=== PATIENT | female | born 1935 | race Asian ===

== ENCOUNTER 2018-03-31 18:56 | Inpatient (IN) | payer OTHER ==
[~2018-03-31] VITALS: Ht 144.8 cm; Wt 68.0 kg
[2018-03-31 19:31] VITALS: Ht 144.8 cm; Wt 68.0 kg
[2018-03-31 20:53] LABS: BASOPHIL % 0.7 % (0-2)
[2018-03-31 20:55] LABS: PLATELET COUNT 95 x10^3mcL (130-400); RED CELL DISTRIBUTION WIDTH 19.5 % (11.5-14.5)
[2018-03-31 21:13] LABS: CALCIUM 8.1 mg/dL (8.5-10.1); CARBON DIOXIDE 22.6 mmol/L (21-32); CHLORIDE SERUM 106 mmol/L (98-107); CREATININE SERUM 2.3 mg/dL (0.6-1.0); GLUCOSE SERUM 119 mg/dL (74-106); POTASSIUM SERUM 4.8 mmol/L (3.5-5.1); SODIUM SERUM 144 mmol/L (136-145)
[2018-03-31 21:18] LABS: ALKALINE PHOSPHATASE 143 U/L (46-116); ALT/SGPT 12 U/L (14-59); AST/SGOT 15 U/L (15-37); TOTAL PROTEIN, SERUM 6.6 g/dL (6.4-8.2)
[2018-03-31 21:19] LABS: ALBUMIN 3.2 g/dL (3.4-5.0)
[2018-03-31] MEDS ORDERED: METFORMIN HYD1000 M2 PO (22:37)
[2018-03-31] MEDS ORDERED: LASIX40 MG PO (22:38)
[2018-03-31] MEDS ORDERED: ELIQUIS5 MG PO (22:38)
[2018-03-31] MEDS ORDERED: CRESTOR20 M1 PO (22:39)
[2018-03-31] MEDS ORDERED: PEPCID20 MG PO (22:39)
[2018-03-31] MEDS ORDERED: LABETALOL HYDR300 MG PO (22:39)
[2018-03-31] MEDS ORDERED: DIGOXIN0.125 M1 PO (22:39)
[2018-03-31] MEDS ORDERED: FOSAMAX70 M1 PO (22:40)
[2018-03-31] MEDS ORDERED: VIT D (22:41)
[2018-03-31 22:57] LABS: T3 TOTAL 0.87 ng/mL
[2018-03-31 23:07] LABS: MAGNESIUM 1.4 mg/dL (1.8-2.4); PHOSPHOROUS 4.4 mg/dL (2.5-4.9)
[2018-03-31 23:22] LABS: CHOLESTEROL/HDL RATIO 1.3
[2018-03-31 23:42] LABS: FREE T4 1.58 ng/dL (0.76-1.46); FREE THYROXINE INDEX 3.8 ug/dL (1.4-4.5); T4(THYROXINE) 10.1 ug/dL (4.7-13.3)
[2018-03-31 23:56] VITALS: BP 95/64
[2018-04-01 05:35] VITALS: BP 96/72
[2018-04-01 06:29] LABS: BASOPHIL % 0.4 % (0-2)
[2018-04-01 06:42] LABS: CHLORIDE SERUM 106 mmol/L (98-107); CREATININE SERUM 2.3 mg/dL (0.6-1.0); GLUCOSE SERUM 145 mg/dL (74-106); MAGNESIUM 1.5 mg/dL (1.8-2.4); PHOSPHOROUS 4.2 mg/dL (2.5-4.9); POTASSIUM SERUM 4.6 mmol/L (3.5-5.1); SODIUM SERUM 142 mmol/L (136-145)
[2018-04-01 06:43] LABS: PLATELET COUNT 94 x10^3mcL (130-400); RED CELL DISTRIBUTION WIDTH 19.4 % (11.5-14.5)
[2018-04-01 08:18] LABS: microscopic required? YES; urine erythrocyte NEGATIVE (NEGATIVE)
[2018-04-01 10:29] VITALS: BP 125/82
[2018-04-01 14:54] VITALS: BP 111/53
[2018-04-01 18:12] VITALS: BP 127/74
[2018-04-01 20:47] VITALS: BP 125/83
[2018-04-02 05:31] VITALS: BP 121/78
[2018-04-02 06:37] LABS: BASOPHIL % 0.4 % (0-2)
[2018-04-02 06:39] LABS: PLATELET COUNT 94 x10^3mcL (130-400)
[2018-04-02 06:53] LABS: CALCIUM 8.5 mg/dL (8.5-10.1); CARBON DIOXIDE 26.9 mmol/L (21-32); CHLORIDE SERUM 106 mmol/L (98-107); CREATININE SERUM 1.8 mg/dL (0.6-1.0); GLUCOSE SERUM 108 mg/dL (74-106); MAGNESIUM 1.6 mg/dL (1.8-2.4); POTASSIUM SERUM 4.1 mmol/L (3.5-5.1); SODIUM SERUM 143 mmol/L (136-145)
[2018-04-02 10:22] VITALS: BP 126/74
[2018-04-02 14:28] VITALS: BP 125/74
[2018-04-02 17:30] VITALS: BP 142/76
[2018-04-02 20:41] VITALS: BP 126/90
[2018-04-03 05:45] VITALS: BP 132/78
[2018-04-03 06:41] LABS: BASOPHIL % 0.4 % (0-2)
[2018-04-03 06:59] LABS: CARBON DIOXIDE 29.8 mmol/L (21-32); CHLORIDE SERUM 107 mmol/L (98-107); CREATININE SERUM 1.3 mg/dL (0.6-1.0); GLUCOSE SERUM 109 mg/dL (74-106); POTASSIUM SERUM 3.4 mmol/L (3.5-5.1); SODIUM SERUM 147 mmol/L (136-145)
[2018-04-03 07:02] LABS: PLATELET COUNT 107 x10^3mcL (130-400); RED CELL DISTRIBUTION WIDTH 18.8 % (11.5-14.5)
[2018-04-03 07:41] VITALS: BP 150/94
[2018-04-03] MEDS ORDERED: LAC PO (11:57)
[2018-04-03 12:33] VITALS: BP 95/63
[2018-04-03] MEDS ORDERED: DOXYCYCLINE HY100 MG PO (15:31)
[2018-04-03 18:54] VITALS: BP 95/63
== END 2018-04-03 19:50 | disposition home or self-care (01) | DRG 606 ==
LOC: ED 18:56 → DU 22:24
PROVIDERS: Emergency Medicine; ADMIT Family Medicine
PROC: 0H9KXZZ Drainage of Right Lower Leg Skin, External Approach (ICD-10-PCS; principal; 2018-04-01)
DX: S80.821A Blister (nonthermal), right lower leg, initial encounter (principal); N17.0 Acute kidney failure with tubular necrosis; I50.33 Acute on chronic diastolic (congestive) heart failure; E44.1 Mild protein-calorie malnutrition; D68.69 Other thrombophilia; I11.0 Hypertensive heart disease with heart failure; E11.65 Type 2 diabetes mellitus with hyperglycemia; E02 Subclinical iodine-deficiency hypothyroidism; I48.2 Chronic atrial fibrillation; Z91.81 History of falling; Y93.89 Activity, other specified; W17.89XA Other fall from one level to another, initial encounter; Y92.018 Other place in single-family (private) house as the place of occurrence of the external cause; Z68.25 Body mass index [BMI] 25.0-25.9, adult
CPT/HCPCS: 82962; 83880; 84439; 97116-GP; J1940; J3475; J7050; Q0092

== ENCOUNTER 2018-09-27 05:34 | Inpatient (IN) | payer OTHER ==
[2018-09-27] VITALS (18 sets, daily range): BP systolic 68–110; BP diastolic 44–77
[~2018-09-27] VITALS: Ht 157.5 cm; Wt 74.0 kg
[~2018-09-27 05:34] MED LIST: CRESTOR20 M1 PO; DIGOXIN0.125 M1 PO; DOXYCYCLINE HY100 MG PO; ELIQUIS5 MG PO; FOSAMAX70 M1 PO; LABETALOL HYDR300 MG PO; LAC PO; LASIX40 MG PO; METFORMIN HYD1000 M2 PO; PEPCID20 MG PO; VIT D
--- NOTE | 2018-09-27 05:47 | NUR ---
PT BIBA PER PRINTED CIRCUIT BOARD LAYOUT DESIGNER PT WAS LAST SEEN IN NORMAL LOC AT 0400. PER PRINTED CIRCUIT BOARD LAYOUT DESIGNER NURSE STS THAT PT WOULD COMMUNICATE BY NODDING. PT BECAME MORE UNRESPONSIVE. PT WAS BAGGED IN THE FEILD AND UPON ARRIVAL. DR. VELASCO AT BEDSIDE FOR INTUBATION AND CENTRAL LINE PLACEMENT. PT ARRIVED W/ URINARY CATH, PER PRINTED CIRCUIT BOARD LAYOUT DESIGNER PT WAS ADMITTED TO FACILITY FOR UTI. DR. VELASCO, RESPIRATORY, EMT, NURSE SIMONE RUIZ AND VANDANA AT BEDSIDE.
--- NOTE | 2018-09-27 06:25 | NUR ---
BL SOFT WRIST RESTRAINTS APPLIED DUE TO INTUBATION.
[2018-09-27 06:49] LABS: BASOPHIL % 0.1 % (0-2); PLATELET COUNT 177 x10^3mcL (130-400)
[2018-09-27] MEDS ORDERED: ACETAZOLAMIDE250 MG PO (06:52)
[2018-09-27] MEDS ORDERED: APAP500 MG GT (06:52)
[2018-09-27] MEDS ORDERED: CARVEDILOL6.25 M1 PO (06:53)
[2018-09-27] MEDS ORDERED: BUDESONIDE0.25 MG/2 IH (06:53)
[2018-09-27] MEDS ORDERED: EFFER-K20 MEQ GT (06:54)
[2018-09-27] MEDS ORDERED: DILTIAZEM HCL120 M2 PO (06:54)
[2018-09-27] MEDS ORDERED: [UNRECOGNIZED DRUG - OTHER] IV (06:55)
[2018-09-27] MEDS ORDERED: HEPARIN NS IV (06:55)
--- NOTE | 2018-09-27 06:55 | NUR ---
LAB AT BEDSIDE FOR DRAW
--- NOTE | 2018-09-27 06:55 | NUR ---
RT AT BEDSIDE FOR ABG
[2018-09-27] MEDS ORDERED: HEPARIN SO5000 UNIT/ IJ (06:56)
--- NOTE | 2018-09-27 06:56 | NUR ---
PER DR. ATWOOD REQUESTED RESP TO PULL BACK 2 CM
[2018-09-27] MEDS ORDERED: ACULAR LS5 ML (06:57)
--- NOTE | 2018-09-27 07:00 | NUR ---
DR. VELASCO CONFIRMED PLACEMENT OF CENTRAL LINE
[2018-09-27] MEDS ORDERED: LACTULOSE10 GM/152 PO (07:05)
--- NOTE | 2018-09-27 07:08 | NUR ---
REPOSITIONED OG TUBE.
[2018-09-27 07:20] LABS: ALKALINE PHOSPHATASE 118 U/L (46-116); ALT/SGPT 15 U/L (14-59); AST/SGOT 19 U/L (15-37); BILIRUBIN TOTAL 0.5 mg/dL (0.20-1.00); CALCIUM 7.5 mg/dL (8.5-10.1); CARBON DIOXIDE 23.7 mmol/L (21-32); CHLORIDE SERUM 105 mmol/L (98-107); CREATININE SERUM 1.2 mg/dL (0.6-1.0); GLUCOSE SERUM 160 mg/dL (74-106); SODIUM SERUM 138 mmol/L (136-145)
[2018-09-27 07:21] LABS: ALBUMIN 1.7 g/dL (3.4-5.0); TOTAL PROTEIN, SERUM 4.9 g/dL (6.4-8.2)
[2018-09-27 07:23] LABS: POTASSIUM SERUM 6.8 mmol/L (3.5-5.1)
[2018-09-27 07:28] LABS: UA SPECIFIC GRAVITY >=1.030 (1.005-1.035); microscopic required? YES; urine erythrocyte 3+ (NEGATIVE)
--- NOTE | 2018-09-27 07:49 | NUR ---
FENTANYL 100MCG/HR PER DR. ATWOOD.
--- NOTE | 2018-09-27 07:53 | NUR ---
PT TAKEN TO CT. REPORT RECEIVED FROM SHEMAR BOWSER TO ASSUME CARE OF PT. OGNEEDS TO BE PULLED BACK AND XRAY NEED TO BE TAKEN. PER DR. ATWOOD DO NOT USE OG NEEDS XRAY FOR PLACEMENT.
--- NOTE | 2018-09-27 07:55 | NUR ---
REPORT TO NIELS REVELES TO ASSUME CARE
[2018-09-27 08:00] LABS: CALCIUM 8.1 mg/dL (8.5-10.1); CARBON DIOXIDE 29.2 mmol/L (21-32); CHLORIDE SERUM 103 mmol/L (98-107); CREATININE SERUM 1.4 mg/dL (0.6-1.0); GLUCOSE SERUM 147 mg/dL (74-106); SODIUM SERUM 137 mmol/L (136-145)
--- NOTE | 2018-09-27 08:05 | NUR ---
RETURNED FROM CT.
--- NOTE | 2018-09-27 08:08 | NUR ---
FENTANYL INCREASED 1.3MCG/KG/HR. PT WAS OPENING EYES AND AGGITATEDTRYING TO GRAB TUBE. DR. ATWOOD MADE AWARE.
[2018-09-27 08:17] LABS: POTASSIUM SERUM 6.4 mmol/L (3.5-5.1)
--- NOTE | 2018-09-27 08:20 | NUR ---
CALCIUM GIVEN THROUGH CENTRASL LINE. VSS. RESP E/U. FAMILY AT BEDSIDE. RESP CALLED FOR TREATMENT.
--- NOTE | 2018-09-27 08:39 | NUR ---
PT MEDICATED PER EMAR WITH VELTASSA VIA GTUBE, +BOWEL SOUNDS UPON AUSCULTATION, FOLLOWED PATIENT CARE ASSOCIATE WITH 20CC OF STERILE WATER, PT TOLERATED WELL.
--- NOTE | 2018-09-27 08:57 | NUR ---
URINE OUTPUT @700 CLEAR AND YELLOW. FAMILY AT BEDSIDE. VSS. RESP E/U. PT TOLERATING WELL. DR. ATWOOD AT BEDSIDE WITH FAMILY.
--- NOTE | 2018-09-27 09:21 | NUR ---
ADJUSTED FENTANYL TO 2.7MCG/KG/H PER DR. HENSON WANTS 200MCG PER HOUR. PT WAS OPENING EYES AND TRYING TO GRAB TUBES. VSS. NO DISTRESS NOED. PT EYES CLOSED AND WITH VISUAL CHEST RISE AND FALL.
--- NOTE | 2018-09-27 10:05 | NUR ---
PT ARRIVED FROM ED ON GURNEY ACCOMPANIED BY RNS, RTS, ACROBATIC RIGGER. PT IS INTUBATED AND SEDATED ON FENTANYL @ 2.5 MCG/KG/HR TO RSS = 5. SLUGGISH RESPONSE TO PAINFUL STIMULI. DOES NOT FOLLOW COMMANDS. PUPILS SLUGGISH BILATERALLY. SIZE 7.5 ETT INTACT AND SECURED, 20 @ LL. OGT INTACT AND SECURED, CLAMPED. R IJ CVC PATENT/CDI. A FIB. S1 S2. ABD IS SOFT AND FLAT. G TUBE INTACT AND CDI. R HAND, L HAND IVS PATENT/CDI. RLE IO INTACT. F/C TO GRAVITY, URINE IS YELLOW, FAIR OUTPUT. GENERALIZED WEAKNESS. ON SOFT B/L WRIST RESTRAINTS. NAD. HOB ELEVATED, BED LOW, SIDE RAILS UP X2, CALL LIGHT IN REACH.
--- NOTE | 2018-09-27 10:15 | NUR ---
REPORT GIVEN TO INOCENTE BOWSER, TO ASSUME CARE OF PT. INFORMED TO NOT USE OG BECAUSE OF WROGE PLACEMENT. RN INFOMRED THAT PT STILL HAS I&O TO RIGHT TIB. VSS UPON TRANSPORTATION.
--- NOTE | 2018-09-27 10:30 | NUR ---
PRESSURE ULCER NOTED TO SACRUM. PHOTOGRAPHIC DOCUMENTATION TAKEN. 1.5CM X 1CM ULCER W/ PINK WOUND BED. NO D/C NOTED. OPTIFOAM APPLIED. FLOATED.
[2018-09-27 10:42] LABS: MAGNESIUM 2.3 mg/dL (1.8-2.4); PHOSPHOROUS 6.8 mg/dL (2.5-4.9)
[2018-09-27 10:46] LABS: CHOLESTEROL/HDL RATIO 3.6
[2018-09-27 10:50] LABS: T3 TOTAL 0.32 ng/mL
--- NOTE | 2018-09-27 11:17 | NUR ---
UPDATED MED REC W/ DAUGHTER'S MOST CURRENT MED LIST.
[2018-09-27 11:27] LABS: FREE T4 0.99 ng/dL (0.76-1.46)
[2018-09-27 11:28] LABS: FREE THYROXINE INDEX 1.5 ug/dL (1.4-4.5); T4(THYROXINE) 3.6 ug/dL (4.7-13.3)
--- NOTE | 2018-09-27 12:45 | NUR ---
VERSED INITIATED AT THIS TIME @ 0.5 MG/HR. FENTANYL TITRATED TO 0.5 MG/HR, RSS = 4.
--- NOTE | 2018-09-27 14:46 | NUR ---
PT BECOMING HYPOTENSIVE WITH LOWEST MAP [address] IN PAST [address] STANISLAV RAY, ORDERS RECIEVED TO BOLUS 500 ML NS AND WILL START PRESSOR TX.
[2018-09-27 16:26] LABS: RED BLOOD CELLS 2.84 M/mm3 (4.10-5.10)
[2018-09-27 16:34] LABS: IRON 47 ug/dL (50-170); TOTAL IRON BINDING CAPACITY 174 ug/dL (250-450)
--- NOTE | 2018-09-27 17:00 | NUR ---
VERSED AND FENTANYL TITRATED OFF AT THIS TIME D/T HYPOTENSION.
[2018-09-27 17:25] LABS: BASOPHIL % 0.3 % (0-2); PLATELET COUNT 150 x10^3mcL (130-400)
[2018-09-27 17:49] LABS: CALCIUM 8.3 mg/dL (8.5-10.1); CARBON DIOXIDE 29.3 mmol/L (21-32); CHLORIDE SERUM 105 mmol/L (98-107); CREATININE SERUM 1.1 mg/dL (0.6-1.0); GLUCOSE SERUM 92 mg/dL (74-106); POTASSIUM SERUM 4.6 mmol/L (3.5-5.1); SODIUM SERUM 141 mmol/L (136-145)
[2018-09-27 17:54] LABS: ALKALINE PHOSPHATASE 113 U/L (46-116); ALT/SGPT 12 U/L (14-59); AST/SGOT 13 U/L (15-37); BILIRUBIN TOTAL 0.6 mg/dL (0.20-1.00)
[2018-09-27 17:57] LABS: ALBUMIN 1.9 g/dL (3.4-5.0); TOTAL PROTEIN, SERUM 5.3 g/dL (6.4-8.2)
--- NOTE | 2018-09-27 18:40 | NUR ---
LEVOPHED INITIATED AT THIS TIME D/T MAP PERSITENTLY UNDER 60 FOR PAST 30 MINS. LEVOPHED INITIATED @ 2MCG/MIN THROUGH R IJ CVC.
--- NOTE | 2018-09-27 19:15 | NUR ---
RECIEVED REPORT FROM NIELS BROWER. POC DISCUSSED. NURSING UPDATES. RESUMED CARE OF PT. SEE SHIFT ASSESSMENT FOR ASSESSMENT.
--- NOTE | 2018-09-27 23:30 | NUR ---
DR CROSS @ BEDSIDE. NURSING UPDATES. POC DISCUSSED. NO NEW ORDERS @ THIS TIME. WILL ENDORSE.
[2018-09-28] VITALS (15 sets, daily range): BP systolic 81–117; BP diastolic 49–85
--- NOTE | 2018-09-28 02:00 | NUR ---
PT W/ BROWN LIQUID UNFORMED BM. CLEANED LINENS AND PT. PT TOLERATED WELL. WILL CONT TO MONITOR.
--- NOTE | 2018-09-28 02:10 | NUR ---
PT W/ AGITATION. TITRATED VERSED FROM OFF TO 1MG PT TOLERATED WELL. NO S/S OF DISTRESS. LINENS AND GOWN CHANGED FOR PT BM BROWN UNFORMED LIQUID. PT TOLERATED WELL. WILL CONT TO MONITOR.
--- NOTE | 2018-09-28 03:48 | NUR ---
PT W/ EPISODES OF HYPOTENSION. TITRATED VERSED OFF. PT BP WNL MAP > 65. WILL CONT TO MONITOR.
[2018-09-28 05:47] LABS: PLATELET COUNT 163 x10^3mcL (130-400)
[2018-09-28 06:00] LABS: CALCIUM 8.4 mg/dL (8.5-10.1); CARBON DIOXIDE 27.7 mmol/L (21-32); CHLORIDE SERUM 105 mmol/L (98-107); GLUCOSE SERUM 120 mg/dL (74-106); MAGNESIUM 2.1 mg/dL (1.8-2.4); POTASSIUM SERUM 4.2 mmol/L (3.5-5.1); SODIUM SERUM 142 mmol/L (136-145)
[2018-09-28 06:03] LABS: BASOPHIL % 0 % (0-2); RED CELL DISTRIBUTION WIDTH 17.6 % (11.5-14.5)
--- NOTE | 2018-09-28 06:19 | NUR ---
NURSING UPDATES PER MAURO DAUGHTER OF PT. PHONE PROTOCOL FOLLOWED. MAURO STATED SHE WOULD BE BY LATER. WILL ENDORSE.
--- NOTE | 2018-09-28 07:16 | NUR ---
THE BP 100/66 AND MAP 79; VASOPRESSIN WAS HELD.
--- NOTE | 2018-09-28 07:30 | NUR ---
PATIENT REMAINS INTUBATED WITH NO SEDATION AT THIS TIME. PATIENT OPENS HER EYES SPONTANEOUSLY AND FOLLOWS SOME SIMPLE COMMANDS. ETT 7.5 SECURED TO FACE AND AT 20CM AT LIPLINE. ETT TO VENT VIA VCV/AC MODE: FIO2 30%, RATE 14, VT 400 AND PEEP 5. OGT IN PLACE AND SECURED TO ETT. OGT PLACEMENT VERIFIED WITH SOME AIR BOLUS. OGT CLAMPED. CVC TO RIJ WITH DRESSING IN PLACE. OTHER IV SITES TO LEFT HAND AND RIGHT HAND. PEG TUBE IN PLACE AND CONNECTED TO TUBE FEEDING WITH VITAL AF AT 10ML/HR. NO RESIDUAL AT THIS TIME. TF INCREASED TO 20ML/HR. AND FREE WATER FLUSH AT 50ML/Q4HR. FLORENTINO CATH TO GRAVITY DRAINING YELLOW URINE. CALL LIGHT WITHIN REACH. SIDE RAILS UP X3. BED IS AT LOWEST POSITION. ALARM IS ON. HEAD OF BED ELEVATED. BLE ELEVATED ON PILLOWS.
--- NOTE | 2018-09-28 08:30 | NUR ---
DR. VALDIVIA IS AT BEDSIDE ASSESSING THE PATIENT. UPDATE PROVIDED TO THE DOCTOR.
--- NOTE | 2018-09-28 08:45 | NUR ---
DR VALDIVIA AT BEDSIDE TO ASSESS PATIENT. NO FAMILY BEDSIDE. POC DISCUSSED WITH NURSING AND RT VALERIO.
--- NOTE | 2018-09-28 10:13 | NUR ---
PLACED PT ON CPAP 5 WITH PSV 12 AND FIO2 30% PER DR. VALDIVIA WRITTEN ORDER.
--- NOTE | 2018-09-28 11:25 | NUR ---
RT IMAN IS AT BEDSIDE AND SWITCHES THE VENT SETTING TO VCV/AC MODE: FIO2 30%, RATE 14, VT 400, PEEP 5. RESIDUAL 0 AT THIS TIME. TUBE FEEDING RATE INCREASED FROM 20ML/HR TO 30ML/HR ORDERED.
--- NOTE | 2018-09-28 12:29 | NUR ---
WOUND CARE EVALUATION NOTE: REASON FOR EVALUATION: LOW MARISSA SCALE AND SACRALCOCCYX WOUND SKIN ASSESSMENT DONE WITH THIS 83 Y/O FEMALE PT ADMITTED [facility] [place] [facility] [place] PAST MEDICAL HX INCLUDES HTN, DM, H/O GI BLEED, A-FIB AND PT. ADMITTED WITH PRESSURE ULCER STAGE 2 TO SACRALCOYX. PT IS AWAKE AND INTUBATED. SKIN IS WARM AND MOIST, BUE MULTIPLE ECCHYMOSIS FROM BLOOD DRAW. BLE WITH DRY FLAKY SKIN, NO HAIR GROWTH, NO EDEMA. DORSAL PEDAL PULSES PRESENT AND NORMAL. PLAN OF CARE DISCUSSE WITH PRIMARY RN AND PT. PT. BLINK HER EYES. INTEGUMENTARY: -MOIST ASSOCIATED DERMATITIS TO BUTTOCKS, PERINEUM, GROINS AREA, SKIN REDNESS INTACT. -SACRALCOCCYX PRESSURE ULCER STAGE 2, WITH 1.5X1X0.1 CM WOUND BED IS 100 % GRANULATING AND FRANTZ-WOUND SKIN INTACT, OPTIFOAM IN PLACE -BLE DRYNESS WITH SKIN INTACT -BILATERAL HEELS BLANCHABLE REDNESS, SKIN INTACT RECOMMENDATIONS: -CLEANSE WITH SOAP AND WATER, PAT DRY, APPLY HYDRAGUARD TO BUTTOCKS, PERINEUM, GROINS AREAS BID AND OPEN TO AIR -CLEANSE SACRALCOCCYX PRESSURE INJURY WITH NS, PAT DRY, APPLY Z GUARD AND COVER WITH OPTIFOAM QD AND PRN IF SOILING. -OFFLOAD BILATERAL HEELS BY PLACING PILLOWS UNDER CALVES UNLESS OTHERWISE CONTRAINDICATED -PRESSURE REDISTRIBUTION SURFACE THERAPY -TURN AND REPOSITION Q2H, OFFLOAD RIGHT, LEFT EARS AND SACRALCOCCYX -KEEP SKIN DRY AND CLEAN AT ALL TIMES -CONTINUE TO FOLLOW RD RECOMMENDATIONS PLEASE CONTACT WOUND CARE NURSE FOR ANY QUESTION AND CHANGE OF WOUND CONDITION.
--- NOTE | 2018-09-28 12:44 | NUR ---
IO AT RIGHT LEG REMOVED WITH THE TIP INTACT. NO BLEEDING NOTED AT THIS TIME. PRESSURE DRESSING APPLIED. OGT REMOVED WITH ASSISTANCE OF RT VALERIO. THE OGT TIP INTACT.
--- NOTE | 2018-09-28 15:16 | NUR ---
DR. MAYORGA IS AT BEDSIDE ASSESSING THE PATIENT. UPDATE PROVIDED TO THE DOCTOR.
--- NOTE | 2018-09-28 15:17 | NUR ---
RESIDUAL CHECKED 0. TUBE FEEDING RATE INCREASED FROM 30ML/HR TO 35ML/HR TO REACH THE GOAL ORDERED.
--- NOTE | 2018-09-28 15:57 | NUR ---
DR. STOCKTON IS AT BEDSIDE ASSESSING THE PATIENT.
--- NOTE | 2018-09-28 17:32 | NUR ---
PATIENT HAD BM WITH MODERATE AMOUNT OF YELLOW LIQUID STOOL. STOOL SAMPLE WAS COLLECTED AND SENT TO THE LAB FOR OB.
--- NOTE | 2018-09-28 18:17 | NUR ---
PATIENT WAS GIVEN A BED BATH; LINEN AND GOWN CHANGED.
--- NOTE | 2018-09-28 19:39 | NUR ---
RECEIVED REPORT FROM NIELS GONGORA. PT IS ALERT AND ABLE TO FOLLOW SIMPLE COMMANDS. PT IS INTUBATED ON NO SEDATION. 7.5 ETT AT 20 CM LL. LUNG SOUNDS COURSE CRACKLES TO BILATERAL UPPER LOBES, DIMINISHED TO BILATERAL LOWER LOBES. S1 S2 HEART SOUNDS AUSCULTATED IN A FIB. PERIPHERAL IV TO RIJ AND LEFT HAND PATENT AND DRESSING CDI. PT HAS MODERATE PULSES TO BUE/BLE. SKIN IS WARM AND CONSISTENT WITH ETHNICITY. PT HAS SCATTERED ECCHYMOSIS TO BUE/BLE. AND WOUND TO SACRUM WITH OPTIFOAM IN PLACE. ABD IS SOFT AND FLAT WITH ACTIVE BOWEL SOUNDS X4Q. PEG TUBE TO UPPER QUADRANTS. VITAL AF INFUSING AT 35 ML/HR. FLORENTINO DRAINING VIA GRAVITY. URINE IS YELLOW WITH FAIR OUTPUT. ALL QUESTIONS AND CONCERNS ANSWERED.
[2018-09-29] VITALS (16 sets, daily range): BP systolic 106–145; BP diastolic 47–87
--- NOTE | 2018-09-29 04:19 | NUR ---
PROVIDED PT WITH NORCO VIA PEG TUBE. PT APPEARED TO BE EXPERIENCING DISCOMFORT. PT NODDED YES WHEN ASKED IF SHE WOULD LIKE PAIN MEDICATION. WEENING MEASURES WILL BE STARTED THIS MORNING, THEREFORE SEDATION COULD NOT BE TURNED BACK ON. WILL CONTINUE TO MONITOR.
--- NOTE | 2018-09-29 05:07 | NUR ---
PT PROVIDED WITH FULL BED BATH, FLORENTINO CARE, AND CVC CARE. ALL SUCTION EQUIPMENT CHANGED FOR NEW ONES. PT TOLERATED WELL.
[2018-09-29 05:26] LABS: PLATELET COUNT 152 x10^3mcL (130-400)
[2018-09-29 05:29] LABS: CALCIUM 7.9 mg/dL (8.5-10.1); CARBON DIOXIDE 27.5 mmol/L (21-32); CHLORIDE SERUM 110 mmol/L (98-107); CREATININE SERUM 0.8 mg/dL (0.6-1.0); GLUCOSE SERUM 175 mg/dL (74-106); PHOSPHOROUS 2.7 mg/dL (2.5-4.9); POTASSIUM SERUM 3.4 mmol/L (3.5-5.1); SODIUM SERUM 143 mmol/L (136-145)
[2018-09-29 05:31] LABS: BASOPHIL % 0 % (0-2); RED CELL DISTRIBUTION WIDTH 18.4 % (11.5-14.5)
[2018-09-29 05:32] LABS: ALBUMIN 1.8 g/dL (3.4-5.0)
--- NOTE | 2018-09-29 07:35 | NUR ---
PLACED PT ON CPAP AT THIS TIME. PT TOLERATING CPAP WELL. WILL CONTINUE TO MONITOR.
--- NOTE | 2018-09-29 08:13 | NUR ---
DARLENE REEVES PLACED PT ON CPAP TO SEE IF PT CAN TOLERATE EXTUBATION. WILL CONTINUE TO MONITOR.
--- NOTE | 2018-09-29 09:39 | NUR ---
DR. NASH, RESIDENTS, SLURRY TANK OPERATOR AND PRIMARY RN AT BEDSIDE FOR MORNING ROUNDS. PLAN OF CARE DISCUSED. WILL CONT TO MONITOR.
--- NOTE | 2018-09-29 09:43 | NUR ---
TF HELD AT THIS TIME FOR POSSIBLE EXTUBATION TODAY. RT CURRENTLY AT BEDSIDE FOR WEANING TRIALS.
--- NOTE | 2018-09-29 10:18 | NUR ---
PT STILL ON CPAP. RESPIRATORY RATE 33, SPO2 94%. DARLENE RT CALLED WITH UPDATE, WILL CONTINUE TO MONITOR.
--- NOTE | 2018-09-29 10:38 | NUR ---
PLACED PT BACK ON FULL SUPPORT AT THIS TIME. WILL CONTINUE TO MONITOR.
--- NOTE | 2018-09-29 11:02 | NUR ---
DR. VALDIVIA AT BEDSIDE TO SEE AND ASSESS PT, PLAN TO ATTEMPT WEANING AGAIN LATER. WILL CONT TO MONITOR.
--- NOTE | 2018-09-29 13:00 | NUR ---
PT PLACED BACK ON CPAP BY DARLENE REEVES. WILL CONTINUE TO MONITOR PT
--- NOTE | 2018-09-29 13:31 | NUR ---
DR. MAYORGA AT BEDSIDE. UPDATED ON PERCEIVED LOW URINE OUTPUT, AND DR. MAYORGA WOULD LIKE TO INCREASE FWF TO 100 ML Q4HR. WILL CARRY OUT ORDER AND MONITOR URINE OUTPUT.
--- NOTE | 2018-09-29 13:44 | NUR ---
IVF REDUCED TO TKO. PRIMARY RN MADE AWARE.
--- NOTE | 2018-09-29 16:00 | NUR ---
PT PLACED BACK ON FULL VENT SUPPORT DUE TO TACHYPNEA, CPAP TO BE TRIED AGAIN TOMORROW.
--- NOTE | 2018-09-29 19:30 | NUR ---
REC'D REPORT FROM MINI BOWSER TO ASSUME CARE. PT INTUBATED WITH NO SEDATION WITH RSS 2. ABLE TO FOLLOW COMMANDS. PERRLA NOTED. 7.5 ETT SECURED @ 20 CM [address]. TRACHEA MIDLINE. NO JVD NOTED. RIJ CVC INTACT, PORTS PATENT, DSG CDI. ETT TO VENT: AC MODE RATE 14, TV 400, PEEP 5, FIO2 30%. CHEST RISE EQUAL AND SYMMETRICAL. LUNG SOUNDS COARSE CRACKLES BUL, DIM BASES. AUTOMATIC LATHE SETTER IN PLACE SHOWING NSR. BP 108/75 MAP 86, HR 90. CHEST WALL STABLE. DENIES ANY CP, SYNCOPE, OR DIZZINESS. PULSES PALPABLE X4. CAP REFILL < 3 SECS. BUE/BLE 1+ PITTING EDEMA. PT ON ELIQUIS. IVF NS @ 10ML/HR. VITAL AF INFUSING VIA PEG TUBE @ 35ML/HR FWF 100ML Q2H. GRV=5ML REPLACED. PT TOLERATING WELL. ABD ROUND, SOFT, NONTENDER TO TOUCH. BOWEL SOUNDS ACTIVE. F/C INTACT AND DRAINING VIA GRAVITY YELLOW URINE. NO VAGINAL BLEEDING. NO LABIAL EDEMA NOTED. ULCER TO SACRUM WITH OPTIFOAM IN PLACE. ECCHYMOSIS TO BUE. DARK SKIN DISCOLORATION TO BLE. PT BEDBOUND. TURNED AND REPOSITIONED Q2H FOR PRESSURE RELIEF. BUE SOFT WRIST RESTRAINTS IN PLACE FOR PT SAFETY. CALM AND COOPERATIIVE. POSITIVE FAMILY SUPPORT AT BEDSIDE. ALL NEEDS MET AT THIS TIME. WILL CONTINUE TO MONITOR.
--- NOTE | 2018-09-29 21:11 | NUR ---
DR YUNG AT BEDSIDE TO ASSESS PT. MADE AWARE PT HAS INCREASED BUE PITTING EDEMA. RECOMMMENDED LASIX PER DR STOCKTON TO START NEEDED. AWAITING FOR FURTHER ORDERS.
[2018-09-30] VITALS (19 sets, daily range): BP systolic 91–124; BP diastolic 39–78
--- NOTE | 2018-09-30 03:30 | NUR ---
TOTAL BED BATH PROVIDED WITH CHG WIPES, F/C CARE PROVIDED, LINENS CHANGED. REPOSITIONED AT THIS TIME.
[2018-09-30 05:07] LABS: PLATELET COUNT 158 x10^3mcL (130-400)
[2018-09-30 05:13] LABS: BASOPHIL % 0 % (0-2); RED CELL DISTRIBUTION WIDTH 17.9 % (11.5-14.5)
[2018-09-30 05:18] LABS: CALCIUM 7.8 mg/dL (8.5-10.1); CARBON DIOXIDE 28.8 mmol/L (21-32); CHLORIDE SERUM 107 mmol/L (98-107); CREATININE SERUM 0.6 mg/dL (0.6-1.0); GLUCOSE SERUM 135 mg/dL (74-106); MAGNESIUM 1.7 mg/dL (1.8-2.4); PHOSPHOROUS 1.9 mg/dL (2.5-4.9); SODIUM SERUM 143 mmol/L (136-145)
--- NOTE | 2018-09-30 05:21 | NUR ---
DR JACOBSONED AT BEDSIDE, UPDATED ON STATUS, NO NEW ORDERS GIVEN.
[2018-09-30 05:23] LABS: POTASSIUM SERUM 2.9 mmol/L (3.5-5.1)
--- NOTE | 2018-09-30 05:26 | NUR ---
REPORT CRITICAL LAB VALUE K+ 2.[address] COLORADO, AWAITING FOR FURTHER ORDERS.
--- NOTE | 2018-09-30 09:00 | NUR ---
PT PLACED ON CPAP BY DELFINO WHITLEY WILL CONTINUE TO MONITOR PT FOR S/S DISTRESS.
--- NOTE | 2018-09-30 09:30 | NUR ---
DR. NASH AND RESIDENTS AT BEDSIDE FOR ROUNDS. UPDATES PROVIDED, QUESTIONS ANSWERED. BEDSIDE RN ASKED ABOUT THE VOLUME AND FREQUENCY OF FREE WATER FLUSHES PER PEG TUBE SINCE IT SEEMED LIKE A HIGH VOLUME CONSIDERING PT'S HEART FAILURE. DR. NASH SUGGESTED TURNING THE FWF DOWN TO 100 ML Q6 FROM 100 ML Q2. WILL CARRY OUT NEW ORDERS.
--- NOTE | 2018-09-30 09:42 | NUR ---
DR. NASH, RESIDENTS, MIDDLEWARE DEVELOPER AND PRIMARY RN AT BEDSIDE FOR MORNING ROUNDS. PLAN OF CARE DISCUSSED, PT TO ATTEMPT WEANING TODAY. WILL CONT TO MONITOR.
--- NOTE | 2018-09-30 10:00 | NUR ---
RECIEVED CALL FROM DR. VALDIVIA AND PROVIDED UPDATES. DR. VALDIVIA AWARE PT CURRENTLY ON CPAP AND STATED TO WEAN IN ABOUT AN HOUR. RT DELFINO AT BEDSIDE AND MADE AWARE.
--- NOTE | 2018-09-30 12:15 | NUR ---
DR. COLORADO PAGED REGARDING REDUCING THE FREQUENCY OF FWF PER PEG TUBE DISCUSSED DURING AM ROUNDS.
--- NOTE | 2018-09-30 12:25 | NUR ---
RECEIVED CALL BACK FROM DR. COLORADO, REQUESTED ALTERING THE FREQUENCY OF FWF FROM 100 CC Q2H DOWN TO THE 100 CC Q6H DISCUSSED IN ROUNDS. DR. COLORADO SAID HE WOULD EDIT THE ORDER. WILL CARRY OUT NEW ORDER AND MONITOR PT.
--- NOTE | 2018-09-30 13:20 | NUR ---
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 fib, tricuspid insufficiency, and anemia PSHx: not documented Labs: BG 135H, BUN 21H, K 2.9L, MG 1.7L, P 1.9L Meds: D 50%, humulin, Lasix, Lipitor, morphine, vancomycin, zofran Diet: TF Vital AF 1.2 @ 10 ml/hr, goal 35 ml/hr, FWF 100 cc Q2H PO Intake: NPO Ht: 157.48cm (62") Wt: 66.6 kg (147#) BMI: 26.9 kg/m2 Bed scale: 66.6 kg IBW: 110# (50 kg) %IBW: 133 UBW: unable to access Age: 83/F Food Allergies: Iodine Skin: ecchymosis BUE, darkened skin BLE, Ulcer on sacrum Presley: 12 Edema: +1 BLE GI: scant watery x 1 Last BM: 09/30 Per H&P, Pt is a 83 yo female with a PMH of Pulmonary HTN, aortic stenosis, end stage heart failure, cardiomegaly, A. fib, tricuspid insufficiency, and anemia who was brought to the ED from [facility] after being found unresponsive. RDN Visit (09/30): Patient was intubated and on vent. Patient was not sedated and was responsive through gestures. Vital AF 1.2 was running @ 35 ml/hr, FWF [address] Candy Shell decreased FWF to 100 cc Q6H due to heart failure, cardiac problems. Problem with: N/V/D/C: scant watery BM yesterday and today per NIELS Quinonez Problems with: Chewing/Swallowing: unable to access Current appetite: unable to access Recent wt change: unable to access %wt change: n/a Vitamin/Supplement use: unable to access Special diet at home: unable to access Physical activity: unable to access Nutrition education given: not appropriate at this time as pt. is intubated Food-drug interactions: lipitor- avoid grapefruit Education given: no Estimated Nutritional Needs Based on body actual weight 66.6 kg Energy: 1239 vs 8793-6787 kcal/d (PSU 2003b vs 25-30kcal/kg) Protein: 80-86 g/d (1.2-1.3 g/kg)- geriatric maintenance Fluid: per doctor as pt has complex cardiac problems Nutrition Diagnosis 1. Inadequate enteral nutrition infusion related to low TF rate as evidenced by current tube feeding rate 35ml/hr meeting <75% of estimated calorie and protein needs. Intervention 1. Recommend increasing Vital AF 1.2 to goal of 50ml/hr, frequency of advancement 10 ml Q4H. FWF per MD (100cc Q6H). This will provide 1440 kcal and 90g protein. This will meet >75% of estimated calorie and protein needs of the patient. Discussed recommendations with Dr. Micheal Melendrez. Monitor/Evaluate Goal: PO intake at least 75% of estimated needs Monitor: PO intake, Labs, GI function F/U in 2-3 days as high risk 10/02-
--- NOTE | 2018-09-30 13:24 | NUR ---
DR. STOCKTON AT BEDSIDE. UPDATES PROVIDED, QUESTIONS ADDRESSED. NO CHANGES RECOMMENDED AT THIS TIME. WILL CONTINUE TO MONITOR PT.
--- NOTE | 2018-09-30 14:20 | NUR ---
DR. VALDIVIA AT BEDSIDE TO ASSESS PT. UPDATES PROVIDED, QUESTIONS ANSWER. NO CHANGES IN PLAN AT THIS TIME, JUST TO KEEP DOING CPAP PT TOLERATES. WILL CONTINUE TO MONITOR.
--- NOTE | 2018-09-30 16:16 | NUR ---
PT PLACED BACK ON A/C VCV BY DELFINO REEVES. WILL CONTINUE TO MONITOR PT.
--- NOTE | 2018-09-30 21:08 | NUR ---
PATIENT CARE AND REPORT TAKEN FROM LISSETT. PATIENT FOUND IN BED INTUBATED. PATIENT IS ALERT AND ORIENTED AND IS ABLE TO FOLLOW COMMANDS HOWEVER IS NON VERBAL DUE TO ETT. PATIENT DENIES ANY PAIN. PT HAS 7.5 ETT [address] LL. PEG TUBE IN PLACE AND FC DRAINING TO GRAVITY. WILL CONTINUE TO MONITOR PATIENT.
--- NOTE | 2018-09-30 23:15 | NUR ---
PT ADMINISTERED 2 MG MORPHINE. PT C/O THROAT PAIN FROM ETT 09/25.
--- NOTE | 2018-09-30 23:22 | NUR ---
PT REMOVED FROM RESTRAINTS. PATIENT NODED HER HEAD IN UNDERSTANDING THAT SHE CANNOT TOUCH THE ETT
--- NOTE | 2018-09-30 23:36 | NUR ---
PROVIDED ETT SUCTIONING. ACANT AMOUNT OF CLEAR SECRETIONS REMOVED
[2018-10-01] VITALS (16 sets, daily range): BP systolic 97–131; BP diastolic 36–83
[2018-10-01 05:16] LABS: BASOPHIL % 0.4 % (0-2); PLATELET COUNT 154 x10^3mcL (130-400)
[2018-10-01 05:23] LABS: RED CELL DISTRIBUTION WIDTH 18.3 % (11.5-14.5)
[2018-10-01 05:27] LABS: CALCIUM 7.8 mg/dL (8.5-10.1); CARBON DIOXIDE 30.6 mmol/L (21-32); CHLORIDE SERUM 108 mmol/L (98-107); CREATININE SERUM 0.5 mg/dL (0.6-1.0); GLUCOSE SERUM 142 mg/dL (74-106); PHOSPHOROUS 1.8 mg/dL (2.5-4.9); POTASSIUM SERUM 3.4 mmol/L (3.5-5.1); SODIUM SERUM 143 mmol/L (136-145)
--- NOTE | 2018-10-01 07:30 | NUR ---
PATIENT REMAINS INTUBATED WITH NO SEDATION. PATIENT OPENS EYES SPONTANEOUSLY AND FOLLOWS COMMANDS. PATIENT COMMUNICATES BY GESTURING. NANCY PUPILS WITH BRISK REACTION TO LIGHT. ETT 7.5 SECURED AT 20CM AT LIPLINE. ETT TO VENT VIA VCV/AC MODE: FIO2 30%, RATE 14, VT 400 AND PEEP 5. CVC AT RIJ. IVF NS AT 10ML/HR. ANOTHER IV SITE TO RIGHT HAND.TELE # 3 READS AFIB AT THIS TIME. PEG TUBE IN PLACE TO TUBE FEEDING WITH VITAL AF AT 35ML/HR AND FREE WATER FLUSH AT 100ML/Q6HR. NO RESIDUAL AT THIS TIME. FLORENTINO CATH TO GRAVITY DRAINING YELLOW URINE. CALL LIGHT WITHIN REACH. SIDE RAILS UP X3. BED IS AT LOWEST POSITION, AND ALARM IS ON. HEAD OF BED ELEVATED. EXTREMITIES ELEVATED ON PILLOWS. ISOGEL MATTRESS IN USE.
--- NOTE | 2018-10-01 08:08 | NUR ---
PT SLEEPING IN NAD, APPEARS COMFORTABLE ON THE VENT. ETT SECURED. VENT ALARMS AND PARAMETERS VERIFIED. HHN TXS GIVEN. HME CHANGED. PT PLACED ON CPAP FOLLOWING BREATHING TXS WITHOUT INCIDENCE.
--- NOTE | 2018-10-01 08:21 | NUR ---
PT PLACED ON CPAP PRESSURE SUPPORT OF 10, PEEP +5, 30% FIO2 AT 0815. RN NOTIFIED.
--- NOTE | 2018-10-01 10:11 | NUR ---
PERFORMED A FEW WEANING PARAMETERS ON THE PT ON CPAP. MIP WAS -36.7, BEST VC I COULD OBTAIN WAS 535ML, HOWEVER PT HAS NO CUFF LEAK WHEN BALLOON IS FULLY DEFLATED. SUBSEA ENGINEER UPDATED. WILL CONTINUE TO MONITOR.
--- NOTE | 2018-10-01 11:20 | NUR ---
DR. VALDIVIA IS AT BEDSIDE TO EXAM THE PATIENT.
--- NOTE | 2018-10-01 11:34 | NUR ---
THE PATIENT'S DAUGHTER, JUDIE IS AT BEDSIDE. DR. VALDIVIA UPDATES THE PLAN OF CARE TO THE DAUGHTER.
--- NOTE | 2018-10-01 11:43 | NUR ---
DR VALDIVIA BEDSIDE - DR WANTED CUFF PRESSURE REDUCED TO ZERO TO SEE IF CUFF LEAK DEVELOPS. CUFF DEFLATED, RN NOTIFIED.
--- NOTE | 2018-10-01 11:52 | NUR ---
DR. MAYORGA IS AT BEDSIDE TO SEE THE PATIENT AND UPDATING THE POC TO THE PATIENT AND HER DAUGHTER, JUDIE. BOTH GESTURE UNDERSTANDING.
--- NOTE | 2018-10-01 12:58 | NUR ---
RAD NURSE, EDUARDO AND US TECH ARE AT BEDSIDE FOR THORACENTESIS.
--- NOTE | 2018-10-01 13:06 | NUR ---
DR. PEÑA IS AT BEDSIDE EXPLAINING THE THORACENTESIS PROCEDURE; RISK AND BENEFITS TO THE DAUGHTER, JUDIE. THEN DOCTOR WILL START THE PROCEDURE AFTER TALKING TO THE DAUGHTER.
--- NOTE | 2018-10-01 13:20 | NUR ---
THORACENTESIS COMPLETED WITH 450ML OUTPUT REPORTED BY JOSUE CLARK RN. BP 101/70, HR 78, RR 20, O2 SAT 99%. PATIENT DENIES PAIN AT THIS TIME.
[2018-10-01 14:29] LABS: SOURCE FLUID THORACENTESIS
--- NOTE | 2018-10-01 15:27 | NUR ---
CANCELLATION REQUESTED FOR ECHOCARDIOGRAM
--- NOTE | 2018-10-01 15:36 | NUR ---
PATIENT WAS GIVEN A BED BATH; LINEN AND GOWN CHANGED. CVC SITE WAS CLEANSED AND CHANGED THE DRESSING WITH ASEPTIC TECHNIQUE. THE WOUND CARE AT [facility] IMPLEMENTED ORDERED BEFORE NEW OPTIFOAM APPLIED.
[2018-10-01 15:38] LABS: APPEARANCE FLUID BLOODY; COLOR FLUID RED
[2018-10-01 15:39] LABS: RBC FLUID 12430 /cumm; WBC FLUID 1940 /cumm
[2018-10-01 16:06] LABS: LYMPHOCYTE FLUID 78 %; MONOCYTE FLUID 8 %
--- NOTE | 2018-10-01 18:20 | NUR ---
DR. STOCKTON IS AT BEDSIDE TO SEE THE PATIENT.
--- NOTE | 2018-10-01 19:05 | NUR ---
REPORT GIVEN TO PRAVEENA RAMIREZ RN. CONCERNS ADDRESSED.
--- NOTE | 2018-10-01 19:06 | NUR ---
RECEIVED REPORT FROM FRANSISCA BOWSER. ALL QUESTIONS AND CONCERNS ADDRESSED.
--- NOTE | 2018-10-01 20:21 | NUR ---
RT LEDESMA AT BEDSIDE. PT PUT BACK ON VCV-AC MODE WITH SETTINGS OF VT 400, FIO2 30%, PEEP 5, RATE 14.
--- NOTE | 2018-10-01 23:53 | NUR ---
DR CROSS AT BEDSIDE ASSESSING PT. UPDATES PROVIDED. NO NEW ORDERS AT THIS TIME.
[2018-10-02] VITALS (17 sets, daily range): BP systolic 78–125; BP diastolic 43–83
--- NOTE | 2018-10-02 04:49 | NUR ---
ASSISTANT CENTER MANAGER AT BEDSIDE FOR BLOOD DRAW.
[2018-10-02 05:03] LABS: BASOPHIL % 0.3 % (0-2); PLATELET COUNT 159 x10^3mcL (130-400)
[2018-10-02 05:07] LABS: RED CELL DISTRIBUTION WIDTH 17.9 % (11.5-14.5)
--- NOTE | 2018-10-02 05:24 | NUR ---
ALL LINENS AND GOWN CHANGED. PT CLEANED AND FLORENTINO CATHETER CARE PROVIDED. PT FLOATED ON PILLOWS AND BONY PROMINENCES OFFLOADED. SCD'S IN PLACE TO BLE. 650CC OF YELLLOW URINE OUTPUT NOTED FOR SHIFT. NO BM. CHG WIPES TO [facility] CVC SITE. BED IN LOW POSITION. CALL LIGHT WITHIN REACH.
[2018-10-02 05:56] LABS: CALCIUM 7.9 mg/dL (8.5-10.1); CARBON DIOXIDE 32.4 mmol/L (21-32); CHLORIDE SERUM 107 mmol/L (98-107); CREATININE SERUM 0.5 mg/dL (0.6-1.0); GLUCOSE SERUM 148 mg/dL (74-106); MAGNESIUM 1.8 mg/dL (1.8-2.4); PHOSPHOROUS 2.5 mg/dL (2.5-4.9); POTASSIUM SERUM 3.8 mmol/L (3.5-5.1); SODIUM SERUM 142 mmol/L (136-145)
--- NOTE | 2018-10-02 06:16 | NUR ---
CHEST X-RAY BEING DONE AT BEDSIDE.
--- NOTE | 2018-10-02 06:26 | NUR ---
DR. YUNG AT BEDSIDE ASSESSING PT. UPDATES PROVIDED.
--- NOTE | 2018-10-02 07:00 | NUR ---
RECEIVED PT INTUBATED WITH NO SEDATION. PERRL. ABLE TO MAKE NEEDS KNOWN BY GESTURING AND NODDING. RIJ CVC INTACT, X3 PORTS PATENT, DRESSING CDI. TRACHEA MIDLINE. NO JVD PRESENT. 7.5 ETT @ 23 LL. ETT TO VENT: VCV/AC MODE = 5 PEEP, 30% FIO2, 14 RATE, 400 VT. BREATHING E/U. SYMM CHEST WALL EXPANSION NOTED. NO ADVENTITIOUS BREATH SOUNDS AUSCULTATED. AFIB ON MONITOR. PEG TUBE TO L ABD NOTED. VITAL AF INFUSING @ 35 ML/HR. ABD IS SOFT, SYMM, ROUNDED, NONTENDER. ACTIVE BOWEL SOUNDS. F/C INTACT AND DRAINING VIA GRAVITY. URINE IS YELLOW IN COLOR WITH FAIR OUTPUT. NO VAGINAL BLEEDING OR DISCHARGE NOTED. ULCER TO SACRAL AREA WITH ZGUARD AND OPTIFOAM IN PLACE. BLE DARK DISCOLORATION NOTED. ECCHYMOSIS TO BUE NOTED. SKIN IS WARM/DRY TO TOUCH, ZEPEDA/BROWN IN COLOR. FALL PRECAUTIONS IN PLACE, BED IN LOWEST POSITION, X3 SIDE RAILS UP, ISOGEL MATTRESS IN USE.
--- NOTE | 2018-10-02 07:00 | NUR ---
RECEIVED REPORT FROM ASHLEY BOWSER. ALL QUESTIONS AND CONCERNS ADDRESSED. WILL RESUME CARE OF PT.
--- NOTE | 2018-10-02 07:05 | NUR ---
GAVE REPORT TO MIREILLE BOWSER. ALL QUESTIONS AND CONCERNS ADDRESSED.
--- NOTE | 2018-10-02 08:30 | NUR ---
MAKAYLA RT AT BEDSIDE. PT PLACED ON CPAP AT THIS TIME. O2 SAT OF 100%. WILL CONT TO MONITOR.
--- NOTE | 2018-10-02 10:50 | NUR ---
DR. NASH AND RESIDENTS AT BEDSIDE ASSESSING PT. UPDATES PROVIDED. NO NEW ORDERS AT THIS TIME.
--- NOTE | 2018-10-02 13:00 | NUR ---
PT RESTING BUT EASILY AROUSABLE. PT REMAINS INTUABTED AND ON CPAP AT THIS TIME. VS STABLE. SYMMETRICAL CHEST WALL EXPANSION NOTED. NO ACUTE SIGNS OF DISTRESS NOTED. RIJ TLC INTACT, X3 PORTS PATENT, DRESSING CDI. PEG TUBE TO L ABD INTACT WITH VITAL AF INFUSING @ 35 ML/HR WITH 100CC FWF Q6H. TOLERATING WELL. OPTIFOAM TO SACRAL IN PLACE. ISOGEL MATTRESS IN USE, BED IN LOWEST POSITION, X3 SIDE RAILS UP, HOB 30 DEGREES.
--- NOTE | 2018-10-02 19:15 | NUR ---
REPORT GIVEN TO ASHLEY BOWSER. ALL QUESTIONS AND CONCERNS ADDRESSED. WILL ENDORSE CARE.
--- NOTE | 2018-10-02 19:16 | NUR ---
RECEIVED REPORT FROM MIREILLE BOWSER. WILL RESUME CARE.
--- NOTE | 2018-10-02 19:25 | NUR ---
RECEIVED PT INTUBATED WITH NO SEDATION. 7.5 ETT AT 20LL INTACT AND SECURED. PT OPENS EYES SPONTANEOULSY. ABLE TO FOLLOW SIMPLE COMMANDS AND MAKE NEEDS KNOWN BY GESTURING AND WRITING. PUPILS 3MM BRISK. PT DENIES ANY PAIN AT THIS TIME. A. FIB ON NUCLEAR ENGINEER. BREATHING E/U. VENT ON VCV-AC MODE WITH SETTINGS OF VT 400, FIO2 30%, R 14, PEEP 5. RIJ TRIPLE LUMEN CVC PATENT AND INTACT, DRESSING CDI. OPTIFOAM IN PLACE TO SACRUM, CDI. ECCHYMOSIS NOTED TO BUE AND DARK DISCOLORATIONS TO BLE. PEG TUBE IN PLACE WITH VITAL AF 1.2 AT 35CC/HR AND FWF 100C Q6HRS. PLACEMENT CHECKED AND 10CC OF RESIDUAL NOTED, REPLACED. ABDOMEN SOFT, NONTENDER. BS ACTIVE X 4. NO N/V NOTED. FLORENTINO CATHETER IN PLACE DRAINING VIA GRAVITY YELLOW URINE. SCD'S IN PLACE TO BLE. BED IN LOW POSITION. CALL LIGHT WITHIN REACH. WILL CONTINUE TO MONITOR.
[2018-10-03] VITALS (12 sets, daily range): BP systolic 11–124; BP diastolic 53–78
--- NOTE | 2018-10-03 03:01 | NUR ---
ASSESSED PT. NAD NOTED. BREATHING E/U. PT DENIES ANY PAIN AT THIS TIME. VAP CARE PROVIDED. PT CALM RESTING COMFORTABLY IN BED. BED IN LOW POSITION. CALL LIGHT WITHIN REACH. WILL CONTINUE TO MONITOR.
--- NOTE | 2018-10-03 04:25 | NUR ---
PAINTER AND BODY WORK AT BEDSIDE FOR BLOOD DRAW.
[2018-10-03 04:34] LABS: BASOPHIL % 0.2 % (0-2); PLATELET COUNT 160 x10^3mcL (130-400)
[2018-10-03 04:44] LABS: CALCIUM 7.7 mg/dL (8.5-10.1); CARBON DIOXIDE 33.4 mmol/L (21-32); CHLORIDE SERUM 106 mmol/L (98-107); CREATININE SERUM 0.5 mg/dL (0.6-1.0); GLUCOSE SERUM 206 mg/dL (74-106); MAGNESIUM 1.7 mg/dL (1.8-2.4); PHOSPHOROUS 2.5 mg/dL (2.5-4.9); POTASSIUM SERUM 3.4 mmol/L (3.5-5.1); SODIUM SERUM 142 mmol/L (136-145)
[2018-10-03 04:50] LABS: RED CELL DISTRIBUTION WIDTH 18.2 % (11.5-14.5)
--- NOTE | 2018-10-03 05:50 | NUR ---
DR. YUNG AT BEDSIDE ASSESSING PT. UPDATES PROVIDED.
--- NOTE | 2018-10-03 06:11 | NUR ---
CHEST X-RAY BEING DONE AT BEDSIDE.
--- NOTE | 2018-10-03 07:05 | NUR ---
GAVE REPORT TO FRANSISCA BOWSER. ALL QUESTIONS AND CONCERNS ADDRESSED.
--- NOTE | 2018-10-03 07:30 | NUR ---
PATIENT AWAKE; OPENS EYES SPONTANEOUSLY AND COMMUNICATES BY GESTURING. PAITENT FOLLOWS SIMPLE COMMANDS. NANCY PUPILS WITH BRISK REACTION TO LIGHT. ETT 7.5 SECURED TO FACE AND AT 20CM AT LIPLINE. ETT TO VENT VIA VCV/AC MODE: FIO2 30%, RATE 14, VT 400 AND PEEP 5. CVC TO RIJ WITH DRESSING INTACT. PEG TUBE TO UPPER ABDOMEN CONNECTED TO TUBE FEEDING WITH VITAL AF AT 35ML/HR. AND FREE WATER FLUSH AT 100ML/Q6HR. NO RESIDUAL AT THIS TIME. FLORENTINO CATH TO GRAVITY DRAINING YELLOW URINE OUTPUT. CALL LIGHT WITHIN REACH. SIDE RAILS UP X3. BED AT LOWEST POSITION. HEAD OF BED ELEVATED. BLE AND RUE ELEVATED. ISOGEL MATTRESS IN USE.
--- NOTE | 2018-10-03 08:14 | NUR ---
VENT SETTING WAS SWITCHED TO CPAP MODE: FIO2 30%, PEEP 5 AND PSV 10 BY RT. MAKAYLA
--- NOTE | 2018-10-03 10:08 | NUR ---
SPOKE TO DR WILLIAMSON AND PROVIDED PATIENT UPDATE. NEW ORDERS RECEIVED.
--- NOTE | 2018-10-03 10:33 | NUR ---
DONELL FROM [facility] AT BEDSIDE TO PRAY WITH PATIENT.
--- NOTE | 2018-10-03 10:37 | NUR ---
THE PATIENT IS EXTUBATED BY RT BENAVIDES AT THIS TIME. PATIENT IS ON OXYGEN AT 2L/MIN VIA NASAL CANNULA WITH O2 SAT 100%. PATIENT IS INSTRUCTED NOT TO TALK FOR A COUPLE OF HOURS TO PROTECT HER VOCAL CORD; SHE GESTURES UNDERSTANDING.
--- NOTE | 2018-10-03 10:47 | NUR ---
Intervention/RDN Recommendation(s): 1. Continue TF Vital AF 1.2 at 35 mL/hr (with goal of 50 mL/hr), FWF per MD to provide 1440 kcal and 90 gm protein to meet > 75% estimated needs.
--- NOTE | 2018-10-03 10:47 | NUR ---
Follow-up Nutrition Assessment- Dx: ALOC, respiratory failure Labs: (10/03) Na 142, K 3.4, Glu 206 H, BUN 16, Cr 0.5 L, A1c 5.3, Hgb 9.1, Hct 29 Meds: D50%/water, humulin R, Lasix, Levequin, Lipitor, Morphine sulfate, Potassium chloride, Prilosec, Solu-medrol, Vancocin, Zofran Current Nutrition Support: TF Vital AF 1.2 at 50 mL/hr via NGT. TF Intake: (10/03) 900 mL, (10/02) 796 mL, (10/01) 929 mL GTF Residuals: 0 mL Weights: (09/30) 147#/66.6 kg, (10/03) 159#/72.2 kg Skin: ecchymosis BUE, darkened skin BLE, ulcer on sacrum Edema: +1 BLE Last BM: 09/30/18 x 1 Current TF Regimen provides 1200 mL total volume, 1440 total kcal, [address] RDN visited Pt. Vital AF 1.2 seen running at 35 mL/hr. Per discussion with RN, Pt is tolerating tube feedings well, may try extubating Pt soon. If Pt is able to be extubated, TF may be increased. Estimated Nutritional Needs unchanged from prior assessment: Energy: 1239 vs 8941-3543 kcal/d (PSU 2003b vs 25-30 kcal/kg) Protein: 80-86 gm/d (1.2-1.3 gm/kg) - geriatric maintenance Fluid: per doctor as Pt has complex cardiac problems Nutrition Diagnosis 1. Inadequate enteral nutrition infusion related to low TF rate as evidenced by current tube feeding 35 mL/hr meeting < 75% estimated calorie and protein needs. (Resolved) Intervention/RDN Recommendation(s): 1. Continue TF Vital AF 1.2 at 50 mL/hr, FWF per MD to provide 1440 kcal and 90 gm protein to meet > 75% estimated needs. Monitor/Evaluate Goal: Intake via nutrition support to meet at least 80% of estimated needs with acceptable tolerance within 2-3 days. Monitor: nutrition support tolerance, Labs, GI function, Skin integrity, Weights. F/U in 2-3 days as high risk (10/05-)
--- NOTE | 2018-10-03 16:56 | NUR ---
DR. WILLIAMSON IS AT BEDSIDE TO SEE THE PATIENT AND TALKING TO THE PATIENT'S DAUGHTER AT BEDSIDE.
--- NOTE | 2018-10-03 17:30 | NUR ---
DR. TABOR IN TO SEE THE PATIENT.
--- NOTE | 2018-10-03 18:52 | NUR ---
DR. CROSS SAW THE PATIENT. UPDATE PROVIDED TO THE DOCTOR.
--- NOTE | 2018-10-03 19:10 | NUR ---
RECEIVED REPORT FROM FRANSISCA BOWSER. WILL RESUME CARE.
--- NOTE | 2018-10-04 02:30 | NUR ---
CHANGED OUT PATIENT'S TUBE FEEDING AND LINE.
--- NOTE | 2018-10-04 02:52 | NUR ---
RT MAKAYLA AT BEDSIDE GIVING BREATHING TREATMENT. PT TOLERATING WELL.
--- NOTE | 2018-10-04 02:53 | NUR ---
PT TAKEN OFF NASAL CANNULA. O2SAT 100%. BREATHING E/U. WILL CONTINUE TO MONITOR.
[2018-10-04 03:08] VITALS: BP 110/71
--- NOTE | 2018-10-04 04:30 | NUR ---
GEORGE SCHWARZ AT BEDSIDE FOR BLOOD DRAW.
[2018-10-04 04:44] LABS: BASOPHIL % 0.3 % (0-2); PLATELET COUNT 171 x10^3mcL (130-400)
[2018-10-04 04:50] LABS: RED CELL DISTRIBUTION WIDTH 17.6 % (11.5-14.5)
[2018-10-04 04:59] LABS: CALCIUM 7.9 mg/dL (8.5-10.1); CARBON DIOXIDE 35.7 mmol/L (21-32); CHLORIDE SERUM 107 mmol/L (98-107); CREATININE SERUM 0.5 mg/dL (0.6-1.0); GLUCOSE SERUM 126 mg/dL (74-106); MAGNESIUM 1.8 mg/dL (1.8-2.4); PHOSPHOROUS 2.5 mg/dL (2.5-4.9); POTASSIUM SERUM 3.7 mmol/L (3.5-5.1); SODIUM SERUM 142 mmol/L (136-145)
--- NOTE | 2018-10-04 05:15 | NUR ---
DR. COLORADO AT BEDSIDE ASSESSING PT. UPDATES PROVIDED. NO NEW ORDERS AT THIS TIME.
[2018-10-04 07:05] VITALS: BP 120/69
--- NOTE | 2018-10-04 07:05 | NUR ---
GAVE REPORT TO MIREILLE BOWSER. ALL QUESTIONS AND CONCERNS ADDRESSED.
--- NOTE | 2018-10-04 07:05 | NUR ---
RECEIVED REPORT FROM ASHLEY BOWSER. UPDATES PROVIDED. ALL QUESTIONS AND CONCERNS ADDRESSED. WILL RESUME CARE OF PT.
[2018-10-04 07:42] VITALS: Ht 157.5 cm; Wt 74.0 kg
--- NOTE | 2018-10-04 09:55 | NUR ---
DR. NASH AND RESIDENTS AT BEDSIDE. ALL QUESTIONS AND CONCERNS ADDRESSED. PT IS ABLE TO GO UPSTAIRS.
[2018-10-04 11:22] VITALS: BP 125/75
--- NOTE | 2018-10-04 11:25 | NUR ---
DR. VALDIVIA AT BEDSIDE ASSESSING PT. UPDATES PROVIDED. PT TO HAVE BREATHING TX ON EZPAP. PT TO BE INSTRUCTED TO USE INCENTIVE SPIROMETER EVERY HOUR. WILL CARRY OUT ORDERS.
--- NOTE | 2018-10-04 13:14 | NUR ---
REPORT GIVEN TO SURESH BOWSER. ALL QUESTIONS AND CONCERNS ADDRESSED. PT WILL BE GOING TO VIA BED.
--- NOTE | 2018-10-04 14:51 | NUR ---
TRANSFERRED PT TO TELE BED. NO COMPLICATIONS AT THIS TIME. INFORMED MAURO (DAUGHTER) OF PT BEING TRANSFERRED UPSTAIRS. UPDATES PROVIDED. ALL QUESTIONS AND CONCERNS ADDRESSED AT THIS TIME. PT WILL BE TRANSFERRED ACCOMPANIED BY MIREILLE BOWSER WITH ALL PT'S MEDICATIONS, FEEDING, PT'S BELONGINGS, AND CHART.
[2018-10-04 15:28] VITALS: BP 11/75; BP 111/75
--- NOTE | 2018-10-04 15:31 | NUR ---
RECEIVED PT FROM ICU, REPORT GIVEN BY MIREILLE. RESP EVEN AND UNLABORED. LUNG SOUNDS DIMINISHED BILATERAL BASES. ON 02 N/C AT [address]PM[address] READING NSR. ABDOMEN SOFT, NONTENDER, NONDISTENDED. BOWEL SOUNDS ACTIVE X4. DENIES N/V/D. PEG TUBE TO RIGHT MID ABDOMEN, PATENT WITH VITAL AF RUNNING AT 35ML/HOUR AND 100ML FLUSHED Q [address] NEW 4X4 DRESSING ON PEG TUBE AND WITH PAPER TAPE. SITE WNL. NO S/S OF INFECTION NOTED. PT HOB ELEVATED AT 45 DEGREES. FLORENTINO CATH IN PLACE, PATENT, DRAINING CLEAR YELLOW URINE TO GRAVITY, STAT LOCK TO R LEG. 100ML URINE NOTED IN FLORENTINO BAG. PT HAS RIJ CENTRAL LINE WITH 3 PORTS, ALL PORTS FLUSHED, PATENT, WITH GOOD BLOOD RETURN. AIR MATRESS IN PLACE. PT WILL BE TURNED AND REPOSITIONED Q 2 HOURS AND PRN. FALL PROTOCOL FOLLOWED. PT ORIENTED TO ROOM AND CALL LIGHT. DENIES PAIN AT THIS TIME. CALL LIGHT WITHIN REACH. BED IN LOWEST POSITION.
--- NOTE | 2018-10-04 16:45 | NUR ---
PT RECEIVING PT EVAL AT THIS TIME. BLOOD SUGAR 111, NO INSULIN COVERAGE INDICATED. PT DENIES PAIN. RESP EVEN AND UNLABORED. NO DISTRESS NOTED.
[2018-10-04 17:32] VITALS: BP 116/74
--- NOTE | 2018-10-04 18:23 | NUR ---
PT IS A AAOX3-4. CONFUSED AND NONRESPONSIVE AT TIMES. RESP EVEN AND UNLABORED. NO RESP DISTRESS NOTED. ON 02 N/C AT 2LPM. NO COUGH OR SOB NOTED. TELE [address] READING A-FIB WITH DEPRESSED T WAVE. RIJ CENTRAL LINE IN PLACE, ALL PORTS PATENT. COVERED WITH CDI DRESSING. PT HAS SACRAL COCCYX WOUND COVERED WITH Z-GUARD AND CDI OPTIFOAM DRESSING. AIR MATRESS IN PLACE. PT GTUBE COVERED WITH CDI DRESSING. TUBE FEEDING VITAL AF RUNNING AT 35ML/HR WITH 100ML WATER FLUSH 1 6 HOURS, TUBE IS PATENT, SITE IS COVERED WITH CDI DRESSING. PT DENIES PAIN AND DISCOMFORT AT THIS TIME. CALL LIGHT WITHIN REACH. BED IN LOWEST POSITION. FALL PROTOCOL FOLLOWED. PT TURNED AND REPOSITIONED Q 2 HOURS. WILL ENDORE ALL CARE TO ASH RN.
[2018-10-04 20:49] VITALS: BP 134/68
--- NOTE | 2018-10-04 22:00 | NUR ---
BEDIDE HANDOFF REPRT DONE WITH ERROL, PT SEEN, RESTING IN BED, ALERT AND ORIENTED X 3 WITH PERIODS OF FORGETFUL AND CONFUSION, SLOW SPEECH, DENIES HEADACHE OR DIZZINESS, BREATHING EVEN AND UNLABORED, LUNG SOUNDS CLEAR ON BUL AND DIMINISHED ON BLL, ON O2 2L VIA NC WITH NO RESP DISTRESS NOTED, RT PROTOCOL, MILD SOB ON EXERTION, PULSES PALPABLE, EDEMA NOTED TO BLE, GENERALIZED WEAKNESS, TOTAL CARE, ON AIR MATTRESS, ON TF WITH VITAL AF 1.2 @ 35 ML/HR, NO RESIDUAL NOTED, HOB AND ASP PRECAUTION IN PLACE, FWF 100ML Q6HRS, GOAL WITH TF IS 50ML/HR, ABD SOFT WITH ACTIVE BS, NO BM AT THIS TIME, INCONTINENT OF BM, FLORENTINO VIA GRAVITY DRAINING YELLOW URINE, CENTRAL LINE TO RIJ, DRESSING C/D/I, RE-POSITION PT Q2HRS, OPTIFORM TO SACRAL AREA, PT'S FAMILY AT BEDSIDE, NO DISTRESS NOTED, WILL KEEP TO MONITOR.
--- NOTE | 2018-10-04 23:24 | NUR ---
[place] IS HERE, ALL UPDATES GIVEN, DR CROSS MADE AWARE OF PT'S LEVAQUIN 250MG IVPB DAILY TREATMENT IS COMPLETED WITH TOTAL 7 DOSES, PER DR CROSS THAT PT NEEDS ANOTHER 3 DOSES OF LEVAQUIN, ORDER ENTERED AND CARRIED OUT.
--- NOTE | 2018-10-05 | NUR ---
CHECK PT'S TF RESIDUAL WITH ZERO, PER ORDER INCREASE 10 ML/HR, TF IS @ 45 ML/HR, HOB AND ASP PRECAUTION IN PLACE.
--- NOTE | 2018-10-05 04:00 | NUR ---
CHECK PT'S TF RESIDUAL, NO RESIDUAL NOTED, PER ODER INCREASED TO 50ML/HR, REACHED THE GOAL.
--- NOTE | 2018-10-05 04:10 | NUR ---
PT HAD SMALL LOOSE BM, PT CLEANED AND TUBE FEEDING SET CHANGED.
[2018-10-05 05:35] VITALS: BP 122/77
--- NOTE | 2018-10-05 06:00 | NUR ---
PT ASLEEP BUT EASILY AROUSABLE, SLEPT MOST OF NIGHT, BREATHING EVEN AND UNLABORED WITH O2 2L VIA NC, RT PROTOCOL, HOB AND ASP PRECAUTION IN PLACE, RE-POSITIONED PT Q2HRS, ON AIR MATTRESS, MORNING BLOOD SUGAR-116 MG/DL WITH NO RISS, NO DISTRESS NOTED, WILL KEEP TO MONITOR.
[2018-10-05 06:32] LABS: BASOPHIL % 0.1 % (0-2); PLATELET COUNT 179 x10^3mcL (130-400)
[2018-10-05 06:47] LABS: CALCIUM 8.1 mg/dL (8.5-10.1); CARBON DIOXIDE 37.2 mmol/L (21-32); CHLORIDE SERUM 103 mmol/L (98-107); CREATININE SERUM 0.5 mg/dL (0.6-1.0); GLUCOSE SERUM 125 mg/dL (74-106); MAGNESIUM 1.8 mg/dL (1.8-2.4); PHOSPHOROUS 2.7 mg/dL (2.5-4.9); POTASSIUM SERUM 3.5 mmol/L (3.5-5.1); SODIUM SERUM 144 mmol/L (136-145)
--- NOTE | 2018-10-05 07:00 | NUR ---
RECEIVED REPORT FROM CHRISTY RN, PT IN NO ACUTE RESP DISTRESS
[2018-10-05 07:15] VITALS: BP 126/63
--- NOTE | 2018-10-05 07:15 | NUR ---
PT IN BED, ABLE TO FOLOWED VERBAL COMMAND, DENIED CP/PRESSURE/VALDES, DENIED N/V/DIZZINESS, IN NO ACUTE RESP DISTRESS, RESP EVEN, NO SOB/COUGH, DIM BLL, TELE #10, NSR, HR-65 AT THIS TIME, PALP PULSES, CAP REFILL < 2 SECS, BEDREST, PEG TUBE PATENT AND INFUSING WELL, CONTINENT, SEE ASSESSMENT, CENTRAL LINE TO RIJ PATENT AND FLUSING WELL, DRESSING CDI, ALL NEEDS ADDRESSED AT THIS TIME, SAFETY PROTOCOL FOLLOWED, CONTINUE TO MONITOR
--- NOTE | 2018-10-05 07:23 | NUR ---
BEDSIDE HANDOFF REPORT GIVEN TO THI-RN, ALL QUESTIONS ANSWERED AND CONCERNS ADDRESSED.
--- NOTE | 2018-10-05 09:59 | NUR ---
PT IN NO ACUTE RESP DISTRESS, AM MED GIVEN PER MD ORDER VIA EMAR, TAKEN WELL, NO ASE NOTED AT THIS TIME, ALL NEEDS ADDRESSED AT THIS TIME, CONTINUE TO MONITOR
[2018-10-05 10:05] VITALS: BP 126/73
--- NOTE | 2018-10-05 11:17 | NUR ---
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 fib, tricuspid insufficiency, and anemia Labs: (10/05): BG 125H, CA 8.1L, HGB 10.2L Meds: Aldactone, D 50%, humulin, Lasix, Lipitor, vancomycin, zofran Diet: TF Vital AF 1.2 @ 10 ml/hr, goal 50 ml/hr, FWF 100 cc Q6H PO Intake: NPO Weights in kg: (10/02) 72, (10/03) 72, (10/04) 74, (10/05) 63.7- fluctuation d/t edema Skin: on air mattress, decub to sacral area Presley: 12 I/Os: (10/04) 1537/1300 (237) Edema: BLE GI: Last BM: 10/04 RDN Visit (10/05): Patient was alert and oriented but appeared weak. Patient is receiving Vital AF 1.2 @ 50 ml/hr, FWF 100 cc Q6H via PEG tube. Per RN Thi, pt. is tolerating TF with no residuals at this time. Pt. does not have any N/V. Patient has stage 2 decubitus ulcer in sacral area. Per progress note (10/04), Patient was extubated ON 10/03 10:30 am, She admits to feeling better, Pulse ox droped to 89 yesterday so she was put on 1L nasal canula. Thoracentesis was done, Pleural effusion was exudate poss 2/2 pneumonia. Patient is awaiting swallow eval. Estimated Nutritional Needs Based on body actual weight 66.6 kg Energy: 0495-8798 kcal/d (25-30kcal/kg) Protein: 80-86 g/d (1.2-1.3g/kg)- geriatric maintenance, pressure ulcer Fluid: per doctor as pt has complex cardiac problems Nutrition Diagnosis 1. Inadequate enteral nutrition infusion related to low TF rate as evidenced by current tube feeding rate 35ml/hr meeting <75% of estimated calorie and protein needs. (improved- rate increased to 50 ml/hr). Intervention 1. Recommend continuing Vital AF 1.2 to goal of 50ml/hr, frequency of advancement 10 ml Q4H. FWF per MD (100cc Q6H). This will provide 1440 kcal and 90g protein. This will meet >75% of estimated calorie and protein needs of the patient. Monitor/Evaluate Goal: Have pt meet at least 75% of estimated needs Monitor: PO intake, Labs, GI function F/U in 3-5 days as moderate risk 10/08-
[2018-10-05 13:51] VITALS: BP 103/59
--- NOTE | 2018-10-05 15:25 | NUR ---
SEEN BY DR STOCKTON ASSISTANT MERCHANDISE MANAGER AT BEDSIDE, NNO AT THIS ITME, PT IN NO ACUTE RESP DISTRESS
--- NOTE | 2018-10-05 15:39 | NUR ---
PT WAS SEEN FOR DYSPHAGIA. PT WAS ABLE TO SAFELY SWALLOW PUREE WITH NECTAR THICK LIQUID. PT HAD MILD COUGH FOR THIN LIQUID. RECOMMENDATION PUREE DIET WITH THIN LIQUID SMALL BITES AND SIPS ONLY.
--- NOTE | 2018-10-05 15:49 | NUR ---
NEW ORDER TO D/C TELE, TRANSFER PT TO MED-SURG, PT MADE AWARE, CHARGE NURSE SEVEN MADE AWARE
--- NOTE | 2018-10-05 15:54 | NUR ---
TELE #10 REMOV[address] RETURN TO [facility] IN NO ACUTE RESP DISTRESS
--- NOTE | 2018-10-05 18:10 | NUR ---
MADE KNOW OF SPEECH THERAPIST EVALUATION AND DIET RECOMMENDATION BY S.T., WILL AWAIT FOR ORDER. MARÍA RN ASSIGNED TO THIS PT MADE AWARE OF ABOVE.
--- NOTE | 2018-10-05 18:23 | NUR ---
PT IN BED, ABLE TO MAKE NEEDS KNOWN, IN NO ACUTE RESP DISTRESS, NO SOB/COUGH, DENIED CP/PRESSURE/VALDES, DENIED N/V/DIZZINESS, BEDREST, FALL RISK, CONTINENT, MEDSURG, PEG TUBE PATENT AND INFUSING WELL, CENTRAL LINE TO RIJ FLUSING W/ NO OBSTRUCTION, DREESING CDI, SKIN C/D/W, ALL NEEDS ADDRESSED AT THIS TIME, SAFETY PROTOCOL FOLLOWED, WILL ENDORSE TO ONCOMING RN
--- NOTE | 2018-10-05 20:00 | NUR ---
BEDIDE HANDOFF REPRT DONE WITH MARÍA-RN, PT SEEN, RESTING IN BED, ALERT AND ORIENTED X 3 WITH PERIODS OF FORGETFUL AND CONFUSION, SLOW SPEECH, DENIES HEADACHE OR DIZZINESS, BREATHING EVEN AND UNLABORED, LUNG SOUNDS CLEAR ON BUL AND DIMINISHED ON BLL, ON O2 2L VIA NC WITH NO RESP DISTRESS NOTED, RT PROTOCOL, MILD SOB ON EXERTION, PULSES PALPABLE, EDEMA NOTED TO BLE, GENERALIZED WEAKNESS, TOTAL CARE, ON AIR MATTRESS, ON TF WITH VITAL AF 1.2 @ 50 ML/HR, NO RESIDUAL NOTED, HOB AND ASP PRECAUTION IN PLACE, FWF 100ML Q6HRS ABD SOFT WITH ACTIVE BS, NO BM AT THIS TIME, INCONTINENT OF BM, FLORENTINO VIA GRAVITY DRAINING YELLOW URINE, CENTRAL LINE TO RIJ, DRESSING C/D/I, RE-POSITION PT Q2HRS, OPTIFORM TO SACRAL AREA, PT'S FAMILY AT BEDSIDE, NO DISTRESS NOTED, WILL KEEP TO MONITOR.
[2018-10-05 21:59] VITALS: BP 126/67
--- NOTE | 2018-10-06 | NUR ---
TUBE FEEDING SET CHANGED, NO RESIDUAL NOTED, TOLERATING WELL WITH VITAL 1.2 AF @ 50 ML/HR, NO DISTRESS NOTED, WILL KEEP TO MONITOR.
--- NOTE | 2018-10-06 04:00 | NUR ---
TF CHECK, NO RESIDUAL NOTED.
[2018-10-06 05:45] VITALS: BP 128/77
--- NOTE | 2018-10-06 06:00 | NUR ---
PT ASLEEP AND APPEARS COMFORTABLE, BREATHING EVEN AND UNLABORED ON O2 2L VIA NC, PT HAD TWO LOOSE STOOL DURING THE SHIFT, SACRAL DRESSING CHANGED, Z-GUARD AND NEW OPTIFORM APPLIED, TF TOLERATING WELL WITH VITAL 1.2 AF @ 50 ML/HR, HOB AND ASP PRECAUTION IN PLACE, NO DISTRESS NOTED, WILL KEEP TO MONITOR.
[2018-10-06 06:22] LABS: BASOPHIL % 0.2 % (0-2); PLATELET COUNT 152 x10^3mcL (130-400)
[2018-10-06 06:33] LABS: CALCIUM 8.1 mg/dL (8.5-10.1); CREATININE SERUM 0.5 mg/dL (0.6-1.0); GLUCOSE SERUM 140 mg/dL (74-106); MAGNESIUM 1.8 mg/dL (1.8-2.4); PHOSPHOROUS 3.1 mg/dL (2.5-4.9)
[2018-10-06 06:51] LABS: CHLORIDE SERUM 102 mmol/L (98-107); POTASSIUM SERUM 3.2 mmol/L (3.5-5.1); SODIUM SERUM 144 mmol/L (136-145)
[2018-10-06 07:03] LABS: RED CELL DISTRIBUTION WIDTH 17.6 % (11.5-14.5)
--- NOTE | 2018-10-06 08:00 | NUR ---
SHIFT ASSESSMENT DONE. PATIENT DROWSY, AROUSABLE. ORIENTED TO PERSON. BUT SLOW TO ANSWER QUESTIONS W/ WEAK VOICE. BREATHING SOUND DIMINISHED NANCY BASES. O2 SAT 96% ON 1L VIA N/C. RT PROTOCOL. GT FEEDING WITH VITAL AV 1.2 50CC/HR, WATER 100CC/Q6H. RESIDUAL CHECK 10CC REPLACED. FLORENTINO PATIENT W/ JERRELL URINE OUTPUT. ON AIR MATTRESS. WOUND REPOSITION Q2H. NO S/S OF PAIN. SIDE RAILS UP X4. 3 PORTS CENTRAL LINE TO RIJ W/ DRSG D/C/I. ALL PORTS PATENT WITH NS FLUSH. CALL LIGHT IN REACH. CONTINUE MONITOR.
[2018-10-06 08:20] LABS: CARBON DIOXIDE 40.6 mmol/L (21-32)
--- NOTE | 2018-10-06 08:27 | NUR ---
REPORTED TO DR. COLORADO BY GERMAN; PATIENT'S POTASSIUM LEVEL 3.2 AND CO2 40.6.
[2018-10-06 09:28] VITALS: BP 123/73
--- NOTE | 2018-10-06 10:00 | NUR ---
REPOSITION PATIENT. PATIENT HAD A LARGE LOOSE BM. SKIN REDNESS TO PERINEAL AREA. Z GUARD APPLIED. OPENED SKIN LESION TO COCCYX AREA WITH OPTIFORM DRSG INTACT. SCD TO BLE'S. SKIN BROWN DISCOLORATION TO NANCY LOWER LEGS.
--- NOTE | 2018-10-06 11:25 | NUR ---
POTASSIUM LEVEL 3.2; KCL 40 MEQ GT GIVEN.
[2018-10-06 17:43] VITALS: BP 123/73
[2018-10-06 17:54] VITALS: BP 129/78
--- NOTE | 2018-10-06 18:41 | NUR ---
TOLERATED GT FEEDING. BM X1, LARGE LOOSE. F/C 1400CC. IVHL'D. REPOSITIONED Q2-3H. NO S/S OF PAIN. ENDORSED CARE TO NOC NURSE.
--- NOTE | 2018-10-06 19:05 | NUR ---
REPORT RECEIVED FROM DAY SHIFT RN. PATIENT WAS SEEN AND IS RESTING COMFORTABLY IN BED. NO DISTRESS NOTED. DROWSY AND LETHARGIC AT THIS TIME. SOFT AND SLOW SPEECH NOTED. A/OX3 WITH PERIODS OF CONFUSION AND FORGETFULNESS. ABLE TO MAKE NEEDS KNOWN. MED SURG PATIENT. DENIES CHEST PAIN/PRESSURE. NO C/O PAIN. BREATHING EVEN AND UNLABORED ON 1L NC. NO SOB OR RESP DISTRESS NOTED. THREE-LUMEN RIJ NOTED. ALL PORTS PATENT AND INTACT. FLUSHES WELL. NO REDNESS OR SWELLING NOTED. DRESSING CDI. OPTIFOAM TO SACRAL, CDI. GTUBE NOTED WITH CONTINUOUS TUBE FEEDING AT 50ML/HR AND FWF 100ML Q6H. TUBE FEEDING RATE AT GOAL LEVEL. FLORENTINO CATH IN PLACE DRAINING YELLOW URINE BUY GRAVITY. NO CLOTS OR KINKS NOTED. COMFORT AND SAFETY MEASURES IN PLACE. BED IS LOCKED AND IN THE LOWEST. SIDE RAILS UP X2. CALL LIGHT IS WITHIN REACH. WILL CONTINUE TO MONITOR.
--- NOTE | 2018-10-06 20:20 | NUR ---
BP 160/64 (103), HR 61. DR YUNG MADE AWARE. PER DR YUNG, PRN APRESOLINE IS NOT NEEDED AT THIS TIME.
[2018-10-06 20:56] VITALS: BP 127/74
--- NOTE | 2018-10-07 | NUR ---
TUBE FEEDING, GTUBE, FORMULA: VITAL AF 1.2 CHANGED. RESIDUALS CHECKED AND 30ML OF WHITE COLOR RESIDUALS NOTED AND RETURNED. PATIENT TOLERATING TUBE FEEDING WELL. TUBE FEEDING RESUMED AT 50ML/HR (AT GOAL RATE) W/ FWF AT 100ML Q6H. NO DISTRESS NOTED. BREATHING EVEN AND UNLABORED ON 1L NC. NO C/O OF PAIN NOTED. REPOSITIONED TO COMFORT. CALL LIGHT IS WITHIN REACH. WILL CONTINUE TO MONITOR.
--- NOTE | 2018-10-07 02:46 | NUR ---
RESTING IN BED WITH EYES CLOSED. NO DISTRESS NOTED. BREATHING EVEN AND UNLABORED ON 1L NC. NO S/S OF PAIN NOTED. TUBE FEEDING VIA GTUBE AT 50ML/HR W/ FWF 100ML Q6H. SAFETY MEASURES IN PLACE. CALL LIGHT IS WITHIN REACH. WILL CONTINUE TO MONITOR.
--- NOTE | 2018-10-07 04:20 | NUR ---
PATIENT HAD A BM. PATIENT CLEANED AND CHANGED WITH JERMAINE CORONA. NO DISTRESS NOTED. PATIENT MADE COMFORTABLE AND IN BED AND REPOSITIONED FOR COMFORT. 850ML YELLOW OUTPUT NOTED FROM FLORENTINO CATH. NO ODOR NOTED. OM 1L NC. BREATHING EVEN AND UNLABORED. CALL LIGHT IS WITHIN REACH. SAFETY MEASURES IN PLACE. WILL CONTINUE TO MONITOR.
--- NOTE | 2018-10-07 05:32 | NUR ---
NOTIFIED DR YUNG AND DR COLORADO ABOUT SWALLOW EVAL RESULTS. PER RECOMMENDATIONS PATIENT IS ABLE TO TAKE PUREE DIET W/ THIN LIQUIDS. EARLIER, DAUGHTER ASKED ABOUT PUREE DIET. DR COLORADO WILL CHECK WITH DR HERRON. NO NEW ORDERS AT THIS TIME. WILL CONTINUE TO MONITOR.
[2018-10-07 05:49] VITALS: BP 113/63
[2018-10-07 06:14] LABS: BASOPHIL % 0.2 % (0-2); PLATELET COUNT 156 x10^3mcL (130-400)
[2018-10-07 06:29] LABS: CALCIUM 8.2 mg/dL (8.5-10.1); CHLORIDE SERUM 104 mmol/L (98-107); CREATININE SERUM 0.4 mg/dL (0.6-1.0); GLUCOSE SERUM 108 mg/dL (74-106); POTASSIUM SERUM 3.4 mmol/L (3.5-5.1); SODIUM SERUM 146 mmol/L (136-145)
--- NOTE | 2018-10-07 06:31 | NUR ---
RESTED IN LONG INTERVALS THROUGHOUT THE NIGHT. NO ACUTE CHANGES NOTED. BREATHING EVEN AND UNLAABORE ON 1L NC. NO C/O PAIN NOTED. FLORENTINO CATH DRAINING YELLOW URINE BY GRAVITY. RIJ CENTRAL LINE W/ ALL PORTS PATENT AND INTACT. NO REDNESS OR SWELLING NOTED. DENIES CHEST PAIN. SAFETY MEASURES IN PLACE. ALL NEEDS AND CONCERNS ADDRESSED. CALL LIGHT IS WITHIN REACH. TUBE FEEDING IN PLACE TOLERATING WELL. WILL ENDORSE CARE TO DAY SHIFT RN.
[2018-10-07 06:33] LABS: RED CELL DISTRIBUTION WIDTH 18.3 % (11.5-14.5)
[2018-10-07 07:35] LABS: CARBON DIOXIDE 40.1 mmol/L (21-32)
--- NOTE | 2018-10-07 08:00 | NUR ---
SHIFT ASSESSMENT DONE. PATIENT DROWSY AROUSABLE. ORIENTED TO PERSON, BUT FORGETFULNESS. SLOW TO ANSWER QUESTION WITH SOFT VOICE. BREATHING SOUND DIMINISHED NANCY BASES. O2 SAT 96% ON 1L VIA N/C. HX OF A FIB; API PULSE 73/MIN, IRREGULAR. G TUBE TO UPPER ABD. SITE CLEAN. NO REDNESS. CARE GIVEN AND DRSG CHANGED. 3 PORTS CENTRAL LINE TO RIJ. DRSG INTACT. SITE CLEAN. NO REDNESS AND DRAIANGE. ALL PORTS PATENT WITH NS FLUSH. FLORENTINO CATH IN PLACE. YELLOW URINE DRAINING. REDNESS TO PARINEAL AREA SUBSIDED. Z GUARD APPLIED. ULCER TO COCCYX, DRSG CAHGNED BY MADELIN WOUND CARE NURSE. GT FEEDING WITH VITAL AF 1.2 50CC/HR AND WATER FLUSH 100CC/Q6H. RESIDUAL CHACK = 20CC, REPLACE. SCD TO BLE. AIR MATTRESS. NO S/S OF PAIN. CONTINUE MONITOR.
--- NOTE | 2018-10-07 08:30 | NUR ---
WOUND CARE RE-EVALUATION NOTE: SKIN ASSESSMENT DONE THIS MORNING, SKIN IS WARM AND AT SAME CONDITION, BLE /FEET DARKER PIGMENTATION HER USUAL UPON ADMISSION, NO SKIN TEAR. POC DISCUSSED WITH PRIMARY RN, WILL CONTINUE SAME INTERVENTIONS ORDERED. INTEGUMENTARY: -GT FRANTZ-STOMA SKIN DRY AND INTACT -MOIST ASSOCIATED DERMATITIS TO BUTTOCKS, PERINEUM, GROINS AREA, SKIN INTACT WITH REDNESS IMPROVING. -SACRALCOCCYX PRESSURE ULCER STAGE 2, WITH 1.5X1 SUPERFICIAL DEPTH, WOUND BED IS 100 % GRANULATING MOIST, NO ODOR, WOUND EDGE FLAT AND FRANTZ-WOUND SKIN INTACT -BLE DRYNESS WITH SKIN INTACT -BILATERAL HEELS BLANCHABLE REDNESS RESOLVED RECOMMENDATIONS: -PLEASE FOLLOW GT SITE CARE PROTOCAL -CLEANSE WITH SOAP AND WATER, PAT DRY, APPLY HYDRAGUARD TO BUTTOCKS, PERINEUM, GROINS AREAS BID AND OPEN TO AIR -CLEANSE SACRALCOCCYX PRESSURE INJURY WITH NS, PAT DRY, APPLY Z GUARD AND COVER WITH OPTIFOAM QD AND PRN IF SOILING. -OFFLOAD BILATERAL HEELS BY PLACING PILLOWS UNDER CALVES UNLESS OTHERWISE CONTRAINDICATED -PRESSURE REDISTRIBUTION SURFACE THERAPY -TURN AND REPOSITION Q2H, OFFLOAD RIGHT, LEFT EARS AND SACRALCOCCYX -KEEP SKIN DRY AND CLEAN AT ALL TIMES -CONTINUE TO FOLLOW RD RECOMMENDATIONS PLEASE CONTACT WOUND CARE NURSE FOR ANY QUESTION AND CHANGE OF WOUND CONDITION.
[2018-10-07 09:19] VITALS: BP 103/72
--- NOTE | 2018-10-07 09:30 | NUR ---
GT SITE CARE GIVEN. DRSG CHANGED. NO REDNESS AND DRAIANGE SEEN.
--- NOTE | 2018-10-07 09:49 | NUR ---
REPORTED TO DR. COLORADO WITH PATIENT'S POTASSIUM LEVEL 3.4 W/ LASIX IVP. NEW ORDER OF KCL 40 MEQ GT GIVEN.
--- NOTE | 2018-10-07 13:12 | NUR ---
HAD ENOUGH AMT OF URINE OUTPUT AFTER LASIX GIVEN. FLORENTINO CARE GIVEN.
--- NOTE | 2018-10-07 13:30 | NUR ---
NOTIFIED DR. COLORADO -- PATIENT HAD PASSED SWALLOW EVAL. DR. COLORADO SAID THAT HE WOULD ORDER PUREED DIET LATER.
--- NOTE | 2018-10-07 16:45 | NUR ---
DR COLORADO NOTIFIED THAT CAITLIN- PATIENT'S DAUGHTER IS REQUESTING TO SPEAK WITH HIM. DR COLORADO PROVIDED WITH CAITLIN PHONE NUMBER. ATTENDING NURSE POLO MAO.
--- NOTE | 2018-10-07 17:15 | NUR ---
VANCOMYCIN IVPB PER ORDER.
--- NOTE | 2018-10-07 17:30 | NUR ---
DR. STOCKTON SAW PATIENT. NEW ORDER WRITTEN.
[2018-10-07 17:33] VITALS: BP 119/75
--- NOTE | 2018-10-07 19:00 | NUR ---
CONDITION STABLE. TOLERATED GT FEEDING. SMEAR BM X1; FLORENTINO OUTPUT 1500 CC COLLECTED. CENTRAL LINE DRSG INTACT. ALL PORTS PATENT. REPOSITED Q2H. ENDORSED CARE TO [facility] NURSE.
--- NOTE | 2018-10-07 20:00 | NUR ---
Awake and verbally responsive. Slow to respond. Soft low voice. No respiratory distress noted on 02 1lpm via n/c. Denies pain. Denies n/v. Gtube feeding tolerated well. HOB kept elevated. Repositioned for comfort. Will cont.to monitor. Call light within reach.
[2018-10-07 20:56] VITALS: BP 111/62
--- NOTE | 2018-10-08 04:25 | NUR ---
Afebrile. No significant change in condition noted. Denies pain. Gtube feeding tolerated well. No residual. No n/v. Had bm this shift. Incontinent. Good pericare, regalado catheter care rendered. Turned and repositioned q2h. Kept pressure off back and bony prominences. Kept skin clean and dry after each incontinence. Heels floated. On air mattress. In no apparent distress.
[2018-10-08 04:58] VITALS: BP 118/69
[2018-10-08 07:35] LABS: CALCIUM 8.4 mg/dL (8.5-10.1); CHLORIDE SERUM 103 mmol/L (98-107); CREATININE SERUM 0.4 mg/dL (0.6-1.0); GLUCOSE SERUM 141 mg/dL (74-106); POTASSIUM SERUM 3.6 mmol/L (3.5-5.1); SODIUM SERUM 146 mmol/L (136-145)
--- NOTE | 2018-10-08 07:35 | NUR ---
RECEIVED PT FROM FACING CUTTING MACHINE OPERATOR. PT AWAKE, ALERT. A/OX2. PT ON 1L NC WITH NO RESP DISTRESS NOTED AT THIS TIME. IV ACCESS RIJ CDI SALINE LOCKED. PERIPHERAL PULSES PALPABLE, NO EDEMA NOTED. PT WITH GENERALIZED WEAKNESS, PT TOTAL CARE. PT HAS GTUBE WITH VITAL AF 1.2 AT 50ML/HR. NO GASTRIC RESIDUAL NOTED. HOB AT 35 DEGREES. SAFETY MEASURES IN PLACE, BED LOW AND LOCKED. CALL LIGHT WITHIN REACH.
--- NOTE | 2018-10-08 07:39 | NUR ---
PHYSICAL THERAPY DAILY NOTES CO-SIGN All documentation done by the Cosmetic Maker for 10/07/18 has been reviewed. I agree with the documentation. Reviewed/Co-Signed by: Jimena Wolfe PT Documentation Done by:ADITYA JC PTA
[2018-10-08 08:08] LABS: BASOPHIL % 0.3 % (0-2); PLATELET COUNT 158 x10^3mcL (130-400); RED CELL DISTRIBUTION WIDTH 18.4 % (11.5-14.5)
[2018-10-08 09:40] VITALS: BP 143/77
--- NOTE | 2018-10-08 13:03 | NUR ---
PT RESTING WITH NO ACUTE DISTRESS NOTED. PT FED SMALL AMOUNT OF PUREE DIET FOR ORAL GRATIFICATION. PT NOTED TO HAVE DELAYED SWALLOWING. PT GTUBE FLUSHED WITH NO GASTRIC RESIDUAL NOTED. HOB AT 35 DEGREES. SAFETY MAINTAINED.
--- NOTE | 2018-10-08 13:12 | NUR ---
DUE MEDS ADMINISTERED VIA GTUBE. PT APICAL PULSE 87, DIGOXIN ADMINISTERD ORDERED. NO GASTRIC RESIDUAL NOTED AT THIS TIME. HOB AT 35 DEGREES. NO ACUTE DISTRESS OR DISCOMFORT NOTED AT THIS TIME.
--- NOTE | 2018-10-08 14:26 | NUR ---
PHYSICAL THERAPY DAILY NOTES CO-SIGN All documentation done by the Software Test Technician for 10/08/18 has been reviewed. I agree with the documentation. Reviewed/Co-Signed by: Jimena Wolfe PT Documentation Done by: ADITYA JC PTA
--- NOTE | 2018-10-08 15:23 | NUR ---
PT RESTING WITH NO DISTRESS NOTED. PT DENIES PAIN. CENTRAL LINE DRESSING CHANGED. PT TOLERATED WELL. GTUBE FLUSHED. NO GASTRIC RESIDUAL NOTED. PT ON 1L O2 SAT 92% AT THIS TIME. SAFETY MAINTAINED.
--- NOTE | 2018-10-08 16:08 | NUR ---
FEEDING CHANGED AT THIS TIME. NO ACUTE DISTRESS NOTED.
[2018-10-08 16:40] VITALS: BP 125/71
--- NOTE | 2018-10-08 18:27 | NUR ---
PT STABLE AT THIS TIME. ALL NEEDS MET THROUGHOUT SHIFT. WILL CONTINUE TO MONITOR AND ENDORSE CARE TO RN CVOR.
--- NOTE | 2018-10-08 18:48 | NUR ---
PT WITH BOWEL MOVEMENT. PT CLEANED AND REPOSITIONED WITH TIRE CHANGER, ZGUARD APPLIED TO SACRAL WOUND, PERIANAL AREA. NEW OPTIFOAM APPLIED. WILL CONTINUE TO MONITOR AND ENDORSE CARE TO ELECTRIC CRANE OPERATOR.
--- NOTE | 2018-10-08 19:42 | NUR ---
RECEIVED PT FROM AM NURSE. PT LAYING DOWN IN BED WITH FAMILY AT BEDSIDE. PT AAOX2, FOLLOW COMMANDS. MED/SURG. DENIES CP/PRESSURE AT THIS TIME. PALPABLE PULSES AL THROGHOUT. MILD EDEMA NOTED TO BUE. DIMINISHED BREATH SOUNDS TO BLL. BREATHING EVEN AND UNLABORED ON 1L NC. O2 SAT AT 98%. NO SOB NOTED. NO ACUTE DISTRES NOTED. ABD SOFT AND NONDISTED. ACTIVE BS X4 QUAD. LAST BM 10/08/18.G-TUBE TO ABD. SURROUNDING SKIN INTACT. GTUBE INFUSING VITAL AF 1.2 AT 50ML/HR WITH 100ML FQ6H. NO RESUDUAL NOTED. HOB ELEVATED. FLORENTINO CATH IN PLACE DRAINING CLEAR YELLOW URINE. GENERALIZED WEAKNESS. TOTAL CARE. WILL REPOSITION Q2H. WOUND TO SACRAL AREA COVERED WITH OPTIFOAM. OPTIFOAM CDI. RIJ SALINE LOCK FLUSHING WELL. SITE FREE FROM REDNESS AND SWELLING. BED AT LOWEST SETTING. SIDE RAIL X2 UP. CALL LIGHT WITHING REACH. WILL CONTINUE TO MONITOR.
--- NOTE | 2018-10-08 22:00 | NUR ---
PT REPOSITIONED TO RIGHT. TOLERATING WELL. NO ACUTE DISTRESS NOTED. WILL CONTINUE TO MONITOR.
[2018-10-08 22:32] VITALS: BP 127/72
--- NOTE | 2018-10-09 | NUR ---
PT REPOSITIONED TO LEFT. TOLERATING WELL. NO ACUTE DISTRESS NOTED. WILL CONTINUE TO MONITOR.
--- NOTE | 2018-10-09 00:13 | NUR ---
PT LAYIND DOWN IN BED WITH EYES CLOSED. BREATHING EVEN AND UNLABORED ON 1L NC . NO ACUTE DISTRESS NOTED. BED AT LOWEST SETTING. SIDE RAILS X2 UP. CALL LIGHT WITHING REACH. WILL CONTINUE TO MONITOR.
--- NOTE | 2018-10-09 02:10 | NUR ---
PT REPOSITIONED TO HER BACK. TOLERATING WELL. NO ACUTE DISTRESS NOTED. WILL CONTINUE TO MONITOR.
--- NOTE | 2018-10-09 04:22 | NUR ---
PT REPOSITIONED TO RIGHT. TOLERATING WELL. NO ACUTE DISTRESS NOTED. WILL CONTINUE TO MONITOR.
--- NOTE | 2018-10-09 05:15 | NUR ---
PT SLEPT WELL THROGHOUT THE NIGHT. PT ON 1L NC O2 SAT AT 98% NO SOB NOTED. NO RESP DISTRES NOTED. GTUBE FEEDING REMAINS AT 50ML/HR 100ML FQ6 WITH VITAL AF 1.2. 20CC. RESIDUAL NOTED. FLORENTINO CATH RENDERED. PT TOLERATED WELL. NO ACUTE DISTRESS NOTED. RIJ PATENT AND INTACT. BED AT LOWEST SETTING. SIDE RAILS X2 UP. CALL LIGHT WITHING REACH. WILL ENDORSE CARE TO AM NURSE.
[2018-10-09 06:00] VITALS: BP 139/86
[2018-10-09 06:57] LABS: BASOPHIL % 0.4 % (0-2); PLATELET COUNT 159 x10^3mcL (130-400)
[2018-10-09 07:00] LABS: CALCIUM 8.5 mg/dL (8.5-10.1); CHLORIDE SERUM 103 mmol/L (98-107); CREATININE SERUM 0.5 mg/dL (0.6-1.0); GLUCOSE SERUM 137 mg/dL (74-106); POTASSIUM SERUM 3.4 mmol/L (3.5-5.1); SODIUM SERUM 148 mmol/L (136-145)
[2018-10-09 07:17] LABS: RED CELL DISTRIBUTION WIDTH 18.3 % (11.5-14.5)
--- NOTE | 2018-10-09 07:30 | NUR ---
ENDORSED CARE TO NIELS MINOR.
--- NOTE | 2018-10-09 07:46 | NUR ---
A+OX2, NO RESPRIATORY DISTRESS NOTED, MEDSURG, PULSES MODERATE AND EQUAL NANCY, EDEMA BUE, LUNG SOUNDS DIMINISHED, 1L NC, BOWEL SOUNDS ACTIVE, G TUBE WITH VITAL AF @ 50 ML/HR, FLORENTINO CATH DRAINING YELLOW URINE, GENERALIZED WEAKNESS, SACRAL WOUND WITH OPTIFOAM, Z GUARD TO PERIANAL AREA, CENTRAL LINE IN RIJ SALINE LOCKED, SITE WNL.
[2018-10-09 08:09] VITALS: BP 138/87
--- NOTE | 2018-10-09 09:52 | NUR ---
PT SITTING AT 90 DEGREES DRINKING ENSURE, NO RESPRIATORY DISTRESS NOTED, IN NO APPARANT PAIN. RESIDUAL 450 ML, TUBE FEEDING HELD AT THIS TIME. WILL NOTIFY RESIDENT DURING ROUNDS. CALL LIGHT WITHIN REACH.
--- NOTE | 2018-10-09 11:06 | NUR ---
DR COLORADO NOTIFIED THAT RESIDUAL [address] COLORADO, RECHECK RESIDUAL AT 1130.
[2018-10-09 11:26] VITALS: BP 138/87
--- NOTE | 2018-10-09 11:30 | NUR ---
AFTER 1.5 HRS, 450 ML RESIDUAL REMAINING AND REPLACED. CHARGE NURSE NOTIFIED AND WILL CALL DR COLORADO.
--- NOTE | 2018-10-09 12:06 | NUR ---
CALLED AND SPOKE TO (RESIDENT)ASSIGNED TO THIS PT & UPDATED HIM OF PT CURRENT RESIDUAL AFTER 1 AND A HALF HOUR THAT FEEDING WAS HELD WHICH IVÁN BOWSER HAD REPORTED IT REMAINS 450ML. SAYS HE WILL ORDER MEDICATION FOR PREMOTILITY AND WILL DISCONTINUE THE PUREE DIET AND JUST KEEP PT ON TUBE FEEDING. FOR NOW FEEDING WILL REMAIN ON HOLD D/T INCREASE RESIDUAL ORDERED. WILL AWAIT FOR 'S ORDER. IVÁN BOWSER ASSIGNED TO THIS PT MADE AWARE OF ABOVE.
[2018-10-09 12:45] VITALS: BP 131/78
--- NOTE | 2018-10-09 12:48 | NUR ---
Follow-up Nutrition Assessment: Shani Al 221-B Dx:ALOC, Respiratory failure Labs:(10/09) Na:148H, K:3.4L, BH, BUN:19H, Cr:0.5L, H/H:9.5/30L Meds: Humulin, KCL, Lanoxin, Lasix, Lipitor, Pulmicort, Orilosec, Tylenol, Vancomycin and Zofran Current Nutrition Support: Vital AF 1.2 at 50ml/hr, FWF:100ml q 6hr via G-tube and pureed diet for oral gratification. TF intake: (10/08)1150ml (10/09)1100ml I/O: (10/08) 1960/1850(+110ml) (10/09) 185/1999(-150ml) Residuals: (10/08)0ml (10/09)450ml x2 TF held Weights: (10/08)63.7kg Skin: Per wound RN note 10/07, pt with sacralcoccyx pressure ulcer stage 2. Edema: BUE Last BM: 10/08 Per progress note 10/08, last day of antibiotics was today. The daughter is also checking some nursing homes to decide which one she transfer her mom to. Patient will be discharged on wednesday 10/11. Per monorail charger operator Liezel, pt with 450ml GRV x 2. Recommended to add promotility agent (Reglan q 8hrs), d/c oral gratification and restart TF at 10ml and increase 10ml q 4hr to to goal. Estimated Nutritional Needs based on actual body weight: 66kg Energy: 1650-1980kcal.day (25-30kcal/kg for wound healing) Protein: 80-99g/day (1.2-1.5g/kg for wound healing) Fluid:per doctor Nutrition Diagnosis 1. Increased nutrient needs related to altered skin integrity as evidenced by pt with stage 2 sacralcoccyx pressure ulcer. Intervention 1. Recommend prokinetic Reglan q 8hrs for GRV 450ml x2. 2. Recommend restart TF at 10 ml/hr and increase 10ml q 4hr to goal of to 60ml/hr to better meet pt's estimated needs for wound healing. This provides 1728kcal, 108g protein. This meets 100% caloric needs and 109% protein needs. 3. Recommend adding Theragran, Vitamin C 500mg and Zinc sulfate 220mg for wound healing. Monitor/Evaluate Previous goal: TF intake at least 75% of estimated needs (not met) Goal: TF intake at least 75% of estimated needs and wound healing Monitor: TF intake/tolerance, Labs, GI function, weights and skin integrity F/U in 2-3 days as high risk:10/11-
--- NOTE | 2018-10-09 12:49 | NUR ---
1. Recommend prokinetic Reglan q 8hrs for GRV 450ml x2. 2. Recommend restart TF at 10 ml/hr and increase 10ml q 4hr to goal of to 60ml/hr to better meet pt's estimated needs for wound healing. This provides 1728kcal, 108g protein. This meets 100% caloric needs and 109% protein needs. 3. Recommend adding Theragran, Vitamin C 500mg and Zinc sulfate 220mg for Stage 2 sacralcoccyx pressure ulcer.
--- NOTE | 2018-10-09 13:12 | NUR ---
PER DR COLORADO, HOLD INSULIN FOR BS 168. PT RESTING IN BED, NO RESPRIATORY DISTRESS NOTED, CONT TO BE ON L SIDE TO ASSIST WITH DIGESTION, CALL LIGHT WITHIN REACH.
--- NOTE | 2018-10-09 13:25 | NUR ---
RESIDUAL RECHECKED: 300 ML, REPLACED. SALES REPRESENTATIVE BUSINESS COURSES BENJI AT BEDSIDE TO EVALUATE PT.
[2018-10-09 16:54] VITALS: BP 149/90
--- NOTE | 2018-10-09 16:58 | NUR ---
RESIDUAL RECHECKED: 0 ML. FAMILY AT BEDSIDE REQUESTING TO SPEAK TO DR COLORADO. DR COLORADO NOTIFIED RESIDUAL 0 ML AND THAT FAMILY REQUESTING TO SPEAK TO HIM. DR COLORADO ALSO GIVEN COPY OF STOVE BOTTOM WORKER RECOMMENDATION. DR COLORADO ALSO NOTIFIED THAT PT STILL HAS PUREE DIET ORDERED. PT HAD LARGE LOOSE BM, LINENS AND GOWN CHANGED, FLORENTINO CARE DONE, CHG WIPES DONE. PT REPOSITIONED FROM R SIDE TO L SIDE. CALL LIGHT WITHIN REACH.
--- NOTE | 2018-10-09 18:59 | NUR ---
TUBE FEEDING INITIATED: VITAL AF 1.2 @ 10 ML/HR, H2O FLUSH 100 ML Q 6HRS, TO BE ADVANCED Q 4HRS. PT REPOSITIONED TO SUPINE, NO RESPRIATORY DISTRESS NOTED ON 1L NC, CALL LIGHT WITHIN REACH.
--- NOTE | 2018-10-09 19:30 | NUR ---
ENDORSED CARE TO CHRISTY BOWSER.
--- NOTE | 2018-10-09 20:00 | NUR ---
PT SEEN, RESTING IN BED, AWAKE, ALERT AND ORIENTED TO SELF AND FAMILY MEMBERS, SLOW TO ANSWER QUESTIONS, BREATHING EVEN AND UNLABORED, LUNG SOUNDS DIMINISHED, ON O2 1L VIA NC, NO RESP DISTRESS NOTED, RT PROTOCOL, MEDSURG PT, NO S&S OF CHEST PAIN, PULSES PALPABLE, EDEMA NOTED TO BLE AND BUE, GENERALIZED WEAKNESS, TOTAL CARE, ON AIR MATTRESS, ABD SOFT AND FLAT WITH ACTIVE BS, NO BM AT THIS TIME, ON TF-VITAL AF 1.2 @ 10 ML/HR, FWF 100 ML Q6GRS, NO RESIDUAL AT THIS TIME, HOB AND ASP PRECAUTION IN PLACE, FLORENTINO VIA GRAVITY DRAINING YELLOW URINE, SACRAL/COCCYX WITH PRESSURE INJURY, Z-GUARD AND OPTIFORM IN PLACE, CENTRAL LINE TO RIJ, DRESSING C/D/I, NO DISTRESS NOTED, WILL KEEP TO MONITOR.
[2018-10-09 21:12] VITALS: BP 129/86
--- NOTE | 2018-10-10 | NUR ---
RECHECK PT'S TUBE FEEDING, NO RESIDUAL AT THIS TIME, INCREASED TO 20 ML/HR, WILL CONTINUE TO MINITOR.
--- NOTE | 2018-10-10 04:00 | NUR ---
CHECK TUBE FEEDING RESIDUAL, 0 ML, INCREASED TO 30 ML/HR.
--- NOTE | 2018-10-10 06:00 | NUR ---
PT ASLEEP BUT EASILY AROUSABLE, SLEPT MOST OF NIGHT, BREATHING EVEN AND UNLABORED ON O2 1L VIA NC WITH NO RESP DISTRESS OR SOB NOTED, MORNING BLOOD SUGAR-97 MG/DL WITH NO RISS, TF WITH VITAL AF 1.2 @ 30 ML/HR, NO RESIDUAL NOTED, HOB AND ASP PRECAUTION IN PLACE, FLORENTINO CARE GIVEN, NO DISTRESS NOTED, WILL KEEP TO MONITOR.
[2018-10-10 06:45] LABS: BASOPHIL % 0.4 % (0-2); PLATELET COUNT 152 x10^3mcL (130-400)
[2018-10-10 06:48] VITALS: BP 121/64
[2018-10-10 07:05] LABS: CALCIUM 8.7 mg/dL (8.5-10.1); CHLORIDE SERUM 102 mmol/L (98-107); CREATININE SERUM 0.4 mg/dL (0.6-1.0); GLUCOSE SERUM 104 mg/dL (74-106); POTASSIUM SERUM 3.4 mmol/L (3.5-5.1); SODIUM SERUM 149 mmol/L (136-145)
[2018-10-10 07:09] LABS: CARBON DIOXIDE 41.5 mmol/L (21-32)
--- NOTE | 2018-10-10 07:20 | NUR ---
BEDSIDE HANDOFF REPORT GIVEN TO KORINA-RN, ALL QUESTIONS ANSWERED AND QUESTIONS ADDRESSED.
[2018-10-10 07:32] LABS: RED CELL DISTRIBUTION WIDTH 18.4 % (11.5-14.5)
[2018-10-10 07:49] VITALS: BP 106/78
--- NOTE | 2018-10-10 07:59 | NUR ---
RECEIVED PATIENT FROM NIELS HARRISON. PATIENT RESTING IN BED, NO COMPLAINTS OF PAIN AT THIS TIME. NOTIFIED DR HAMEED SAYED THAT PATIENT CO2 ELEVATED TO 41.5, STATES WE WILL WAIT FOR PULMONOLOGY TO EVALUATE PATIENT. ALSO MADE AWARE THAT PATIENT PO KLOR-CON CANNOT BE CRUSHED FOR GT ADMIN, STATES HE WILL SWITCH TO LIQUID FORM. WILL CONTINUE TO MONITOR. CALL LIGHT IN REACH AT THIS TIME.
--- NOTE | 2018-10-10 10:09 | NUR ---
PATIENT IN BED, NO S/S OF DISTRESS. PEG TUBE RESIDUAL CHECKED, ~15ML AND REPLACED. PEG TUBE MEDICATIONS ADMINISTERED, TOLERATED. TUBE FEEDING INCREASED BY 10 ML/HR NOW AT 40ML/HR. CALL LIGHT IN REACH AT THIS TIME, BED IN LOWEST POSITION.
[2018-10-10 16:13] VITALS: BP 111/65
--- NOTE | 2018-10-10 18:51 | NUR ---
DR HAMEED SAYED IN TO SPEAK WITH PATIENT DAUGHTERS. DISCUSS PLAN OF CARE. DAUGHTERS STATE THEY WERE LOOKING FOR METROLOGY MANAGER CARE FACILITY AND THAT THEY WILL SPEAK WITH SHELTERED WORKSHOP EXECUTIVE DIRECTOR ALEJANDRO TOMORROW. ALL CONCERNS INCLUDING MEDICATION REGIMENT AND FUTURE CARE DISCUSSED WITH DR HAMEED SAYED. PATIENT IN BED AT THIS TIME, NO S/S OF PAIN OR DISTRESS. WILL ENDORSE TO ONCOMING NURSE. FAMILY AT BEDSIDE. CALL LIGHT IN REACH.
--- NOTE | 2018-10-10 19:30 | NUR ---
PT RECEIVED A/O X2, SLOW RESPONSES NOTED, PT ABLE TO ANSWER YES OR NO QUESTIONS. MED-SURG, DENIES ANY CP/RPESSURE. PULSES PALPABLE, EDEMA TO BUE AND BLE. LUNG SOUNDS DIM NANCY, BREATHING IS EVEN AND UNLABORED ON 1L NC, NO RESP DISTRESS NOTED. ABD SOFT AND ROUND, BOWEL TONES ACTIVE X4 QUAD, NO N/V PRESENT. VITAL AF 1.2 INFUSING WELL AT 50 ML/HR WITH 200 ML FWF Q6H, RESIDULA-10 ML, REPLACED, HOB ELEVATED. FLORENTINO CATH SECURE AND IN PLACE DRAINING VIA GRAVITY, YELLOW URINE NOTED. GENERALIZED WEAKNESS, MAX ASSIST, ON AIR MATTRESS; PT IS TOTAL CARE. SMALL OPEN WOUND NOTED TO SACRUM/COCCYX WITH ZGUARD AND OPTIFOAM IN PLACE. PT DENIES HAVING ANY PAIN AT THIS TIME. RIJ CENTRAL LINE, TRIPLE LUMEN IN PLACE, PORTS PATENT, SITE FREE FROM REDNESS OR SWELLING. NO ACUTE DISTRESS NOTED. BED ALARM ON. CALL LIGHT WITHIN REACH. WILL CONT TO MONITOR.
[2018-10-10 20:20] VITALS: BP 121/79
--- NOTE | 2018-10-11 00:32 | NUR ---
PT RESTING IN BED WITH EYES CLOSED, BUT IS EASILY AROUSABLE. BREATHING IS EVEN AND UNLABORED ON 1L NC, NO RESP DISTRESS NOTED. PT DENIES HAVING ANY PAIN AT THIS TIME. TUBE FEEDING RESIDUAL CHECKED-40 ML, REPLACED. HOB ELEVATED, ASPIRATION PRECATIONS IN PLACE. NO ACUTE DISTRESS NOTED. CALL LIGHT WITHIN REACH. WILL CONT TO MONITOR.
[2018-10-11 05:34] VITALS: BP 115/64
[2018-10-11 06:07] LABS: BASOPHIL % 0.3 % (0-2); PLATELET COUNT 140 x10^3mcL (130-400)
[2018-10-11 06:20] LABS: RED CELL DISTRIBUTION WIDTH 18.3 % (11.5-14.5)
[2018-10-11 06:27] LABS: CALCIUM 8.6 mg/dL (8.5-10.1); CHLORIDE SERUM 106 mmol/L (98-107); CREATININE SERUM 0.5 mg/dL (0.6-1.0); GLUCOSE SERUM 129 mg/dL (74-106); PHOSPHOROUS 3.6 mg/dL (2.5-4.9); POTASSIUM SERUM 3.5 mmol/L (3.5-5.1); SODIUM SERUM 150 mmol/L (136-145)
[2018-10-11 06:33] LABS: CARBON DIOXIDE 41.4 mmol/L (21-32)
--- NOTE | 2018-10-11 07:45 | NUR ---
RECEIVED PT IN BED. ASSESSED AND DOCUMENTED. STABLE. DENIES ANY PAIN. SAFTEY PRECAUTIONS ARE IN PLACE. WILL MONITOR.
--- NOTE | 2018-10-11 07:49 | NUR ---
PT SLEPT WELL THROUGHOUT THE EVENING. BREATHING IS EVEN AND UNLABORED, NO RESP DISTRESS NOTED. PT DENIES HAVING ANY PAIN AT THIS TIME. PT CLEANED AND REPOSITIONED, Z-GUARD AND OPTIFOAM PLACED TO SACRUM. FLORENTINO CARE AND CHG WIPES GIVEN. GTUBE INFUSING WELL @ 50 ML/HR WITH 200 ML FWF Q6H, RESIDUAL-10 ML, REPLACED. HOB ELEVATED, ASPIRATION PRECAUTIONS IN PLACE. NO ACUTE CHANGES ENCOUNTERED DURING SHIFT. ALL NEEDS MET AND ANTICIPATED. CENTRAL LINE IN PLACE, CDI, SITE WNL. BED ALARM ON, CALL LIGHT WITHIN REACH. CONTINUITY OF CARE ENDORSED TO CHIDI BOWSER. ALL QUESTIONS AND CONCERNS ADDRESSED.
[2018-10-11 08:46] VITALS: BP 118/68
--- NOTE | 2018-10-11 10:00 | NUR ---
DOCTOR DID ROUNDS. ED AWARE ABOUT ALL ABNORMAL LABS.
--- NOTE | 2018-10-11 12:00 | NUR ---
PT RESTING IN BED COMFORTABLY. STABLE. DENIES ANY PAIN.
--- NOTE | 2018-10-11 14:00 | NUR ---
PT IS STABLE. DENIES ANY PAIN.
--- NOTE | 2018-10-11 14:30 | NUR ---
PHYSICAL THERAPY DAILY NOTES CO-SIGN All documentation done by the Office Clin Asst for 10/11/18 has been reviewed. I agree with the documentation. Reviewed/Co-Signed by: Jimena Wolfe PT Documentation Done by: ADITYA JC PTA
[2018-10-11 17:29] VITALS: BP 131/73
--- NOTE | 2018-10-11 19:00 | NUR ---
PT RESTING IN BED COMFORTABLY. REPOSITIONED Q2HR. DENIES PAIN THIS TIME. CHANGED FREE WATER FLUSH TO 150ML Q2HR PER ORDER. STABLE. GAVE REPORT TO BENEFITS PROCESSOR NURSE.
--- NOTE | 2018-10-11 19:50 | NUR ---
RECEIVE DPATIENT IN BED AWAKE AND ALERT WITH NO SIGN OF DISTRESS, BREATHING EASY AND NONLABOR ON O2 AT 1L VIA NC. BLE AND LE EDEMA NOTED, PATIEN MIRIAN WILD PO. ABDOMEN SOFT AND NONTENDER WITH GTUBE FEEDING TF VITAL AT 50ML/HR WITH FWF OF 150ML Q 2HRS. NO RESIDUAL NOTED. DRESSING WITH Z GUARD AND OPTIFOAM TO SACRAL AREA. IV HEPLOCK FLUSHED WITH NS. FLORENTINO TO GRAVITY DRAINING YELLOW URINE OUTPUT. WILL CONTINUE TO MONITOR. DAUGHTER AT BEDSIDE.
[2018-10-11 20:52] VITALS: BP 119/79
--- NOTE | 2018-10-11 21:45 | NUR ---
AWAKE RESTING IN BED, REPOSITIONED FOR COMFORT. RT AT BEDSIDE ADMINISTERING BREATHING TREATMENT.
--- NOTE | 2018-10-12 05:09 | NUR ---
CHECKED AT INTERVALS FOR NEEDS AND SAFETY. HAD BM X1 SOFT IN MODERATE AMOUNT. REPOSITIONED FOR COMFORT.
[2018-10-12 05:35] VITALS: BP 138/88
[2018-10-12 07:03] LABS: CALCIUM 8.5 mg/dL (8.5-10.1); CARBON DIOXIDE 39.9 mmol/L (21-32); CHLORIDE SERUM 102 mmol/L (98-107); CREATININE SERUM 0.5 mg/dL (0.6-1.0); GLUCOSE SERUM 146 mg/dL (74-106); POTASSIUM SERUM 3.5 mmol/L (3.5-5.1); SODIUM SERUM 144 mmol/L (136-145)
--- NOTE | 2018-10-12 07:50 | NUR ---
PT RESTING IN BED COMFORTABLY. DENIES ANY PAIN. STABLE. REPOSITIONING Q2HR. SAFTEY PRECAUTIONS ARE IN PLACE. WILL MONITOR.
[2018-10-12 09:10] VITALS: BP 132/75
--- NOTE | 2018-10-12 10:30 | NUR ---
CHANGED FREE WATER FLUSH 250ML Q6H PER ORDER. PT IS STABLE.
--- NOTE | 2018-10-12 11:58 | NUR ---
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 fib, tricuspid insufficiency, and anemia Labs: (10/12): BG 146H, BUN 21H, CREAT 0.5L, HGB 9.0L Meds: D 50%, humulin, Lipitor, Pulmicort, reglan, Theragran, vitamin C, Zinc sulfate, vancomycin, zofran Diet: TF Vital AF 1.2 @ 10 ml/hr, goal 50 ml/hr, FWF 150 cc Q2H PO Intake: NPO Weights in kg: (10/03) 72, (10/04) 74, (10/05) 63.7, (10/12) - fluctuation d/t edema Skin: small open wound noted to coccyx/sacral area, Z- guard w/ optifoam in place Presley: 12 I/Os: (10/11) 1550/3000 (-1450) Edema: BLE, BUE GI: Last BM: 10/09 RDN Visit (10/12): Per progress note (10/11), Pt continues to have hyponatremia, Lasix D/C'ed, FWF increased to 150cc Q2H. Patient was alert and oriented but appeared weak. Patient is receiving Vital AF 1.2 @ 50 ml/hr, FWF 100 cc Q6H via PEG tube. However TF was help to check residuals. Pt. had 10 cc residuals per RN Radha. Per RN, Pt does not have any N/V/D/C but did have loose stools yesterday. Estimated Nutritional Needs Based on body actual weight 66.6 kg Energy: 2400-4975 kcal/d (25-30kcal/kg) Protein: 80-86 g/d (1.2-1.3g/kg)- geriatric maintenance, pressure ulcer Fluid: per doctor as pt has complex cardiac problems Nutrition Diagnosis 1. Inadequate enteral nutrition infusion related to low TF rate as evidenced by current tube feeding rate 35ml/hr meeting <75% of estimated calorie and protein needs. (improved- rate increased to 50 ml/hr). 2. Increased nutrient needs related to altered skin integrity as evidenced by stage 2 sacrococcyx pressure ulcer. (healing- per NIELS Garcia) Intervention 1. Recommend continuing Vital AF 1.2 to goal of 50ml/hr, frequency of advancement 10 ml Q4H. FWF per MD (100cc Q6H). This will provide 1440 kcal and 90g protein. This will meet >75% of estimated calorie and protein needs of the patient. 2. Recommend continuing Theragran, Vitamin C 500 mg and Zinc sulfate 220 mg for wound healing. Monitor/Evaluate Goal: Have pt meet at least 75% of estimated needs Monitor: TF intake/ tolerance, Labs, GI function F/U in 3-5 days as moderate risk 10/15-10/17
[2018-10-12 12:52] VITALS: BP 132/75
--- NOTE | 2018-10-12 14:00 | NUR ---
PT RESTING IN BED COMFORTABLY. DENIES PAIN. STABLE.
[2018-10-12 17:17] VITALS: BP 131/73
--- NOTE | 2018-10-12 19:00 | NUR ---
PT RESTING IN BED COMFORTABLY. STABLE. DAUGHTER JUST CAME TO VISIT THE PT. [facility] NEED TO ARRANGE BIPAP BEFORE PT TRANSFER THERE PER ORDER. REPORT GIVEN TO CONCRETE FOREMAN NURSE.
--- NOTE | 2018-10-12 19:53 | NUR ---
RECEIVED PATIENT IN BED AWAKE AND ALERT WITH NO SIGN OF ACUTE DISTRESS. BREATHING EASY AND NONLABORON O2 AT 1L VIA NC. ABDOMEN SOFT AND NONTENDER WITH ACTIVE BS, WITH GTUBE FEEDINGS TF VITAL AT 50ML/HR WITH FWF OF 250ML Q 6HRS. FLORENTINO TO GRAVITY DRAINING YELLOW URINE OUTPUT. CENTRAL LINE TO RIJ CDI AND HEPLOCK. WILL CONTINUE TO MONITOR. DAUGHTER AT BEDSIDE.
--- NOTE | 2018-10-12 20:05 | NUR ---
RECEIVED PATIENT IN BED SITTING WITH NO SIGN OF ACUTE DISTRESS. BREATHING EASY AND NONLABOR SATTING AT 99% RA. PATIENT AWAITING MARKETING AGENT FOR TRANSFER. WILL CONTINUE TO MONITOR.
[2018-10-12 21:39] VITALS: BP 127/82
--- NOTE | 2018-10-12 22:15 | NUR ---
HAD BM SOFT IN MODERATE AMOUNT, PERIANAL CARE GIVEN, REPOSITIONED FOR COMFORT.
--- NOTE | 2018-10-12 23:53 | NUR ---
TUBE FEEDING CHANGED INFUSING WELL AT 50ML/HR WITH FWF OF 250 ML Q6 HRS. NO RESIDUAL NOTED. REPOSITIONED FOR COMFORT. WILL CONTINUE TO MONITOR.
--- NOTE | 2018-10-13 05:05 | NUR ---
CHECKED AT INTERVALS FOR NEEDS AND SAFETY. REPOSITIONED FOR COMFORT. HAD BM X1 SOFT IN MODERATE AMOUNT. ALL NEEDS ATTENDED.
[2018-10-13 05:42] VITALS: BP 147/85
--- NOTE | 2018-10-13 07:09 | NUR ---
PHYSICAL THERAPY DAILY NOTES CO-SIGN All documentation done by the Template Fitter for 10/12/18 has been reviewed. I agree with the documentation. Reviewed/Co-Signed by: Jimena Wolfe PT Documentation Done by:ADITYA JC PTA
--- NOTE | 2018-10-13 07:22 | NUR ---
A+OX2, NO RESPRIATORY DISTRESS NOTED, MEDSURG, PULSES MODERATEA AND EQUAL NANCY, BUE AND BLE EDEMA, LUNG SOUNDS DIMINISHED, 1L NC, BOWEL SOUNDS ACTIVE, FLORENTINO CATH DRAINING YELLOW URINE TO GRAVITY, GENERALIZED WEAKNESS, BEDBOUND, AIR MATTRESS ON, WOUND TO COCCYX/SACRUM WITH OPTIFOAM CDI, RIJ CENTRAL LINE CDI.
--- NOTE | 2018-10-13 08:26 | NUR ---
PHYSICAL THERAPY SAT PT IN CHAIR, MAX ASSIST, NO RESPIRATORY DISTRESS NOTED, CALL LIGHT WITHIN REACH.
[2018-10-13 09:05] VITALS: BP 116/63
--- NOTE | 2018-10-13 09:36 | NUR ---
PT PLACED BACK IN BED AND REPOSITIONED TO R SIDE BY PHYSICAL THERAPY, 20 ML RESIDUAL REPLACED, TOLERATING FEEDING WELL, NO RESPRIATORY DISTRESS NOTED, CALL LIGHT WITHIN REACH.
--- NOTE | 2018-10-13 11:47 | NUR ---
PT RESTING IN BED, NO RESPIRATORY DISTRESS NOTED, IN NO APPARANT PAIN, REPOSITIONED TO SUPINE, CALL LIGHT WITHIN REACH.
--- NOTE | 2018-10-13 12:41 | NUR ---
PT RESTING IN BED WITH BOTH EYES CLOSED, APPEARS TO BE SLEEPING, NO RESPIRATORY DISTRESS NOTED, IN NO APPARANT PAIN, CALL LIGHT WITHIN REACH.
--- NOTE | 2018-10-13 14:40 | NUR ---
PT RESTING IN BED, NO RESPRIATORY DISTRESS NOTED, IN NO APPARANT PAIN, REPOSITIONED TO L SIDE, CALL LIGHT WITHIN REACH.
--- NOTE | 2018-10-13 15:19 | NUR ---
PHYSICAL THERAPY DAILY NOTES CO-SIGN All documentation done by the Assistant Sales Director for 10/13/18 has been reviewed. I agree with the documentation. Reviewed/Co-Signed by: Jimena Wolfe PT Documentation Done by: ADITYA JC PTA
--- NOTE | 2018-10-13 15:50 | NUR ---
I TELEPHONED DAUGHTER CAITLIN IBRAHIM AND INFORMED HER THAT PT WOULD BE TRANSFERRED TO [facility] BETWEEN [id number]. LINDA TUCKER STATED CASE MGMT NOTIFIED HER EARLIER AND IS AGREEABLE TO TRANSFER.
[2018-10-13 15:54] VITALS: BP 116/65
--- NOTE | 2018-10-13 16:15 | NUR ---
REPORT GIVEN TO BENJI BOWSER @ [facility].
[2018-10-13 16:16] VITALS: BP 116/65
[2018-10-13] MEDS ORDERED: [UNRECOGNIZED DRUG - CODE] PO (16:22)
[2018-10-13] MEDS ORDERED: LASIX20 MG PO (16:22)
--- NOTE | 2018-10-13 17:07 | NUR ---
FLORENTINO CATH REMOVED WITH CATHETER INTACT, FLORENTINO EMPTIED: 1400 ML, RIJ CENTRAL LINE REMOVED WITH CATHETER INTACT, ALL SUTURES REMOVED, PRESSURE PLACED ON SITE FOR 5 MINS, GAUZE AND TAPE PLACED ON SITE. PT PLACED IN TRANSFER GOWN AND TRANSFER BLANKET.
--- NOTE | 2018-10-13 17:35 | NUR ---
[facility] ALL BELONG[facility] ESCORTED BY JENNIFER.
== END 2018-10-13 17:39 | DRG 870 ==
LOC: ED 05:34 → IC 09:13 → DU 09:13 → MU 09:13 → IC 09:28 → DU 10-04 15:00 → MU 10-05 15:52
PROVIDERS: Emergency Medicine; General Practice; Internal Medicine; Internal Medicine Nephrology; ADMIT Internal Medicine
PROC: 5A1955Z Respiratory Ventilation, Greater than 96 Consecutive Hours (ICD-10-PCS; principal; 2018-09-27)
PROC: 0BH17EZ Insertion of Endotracheal Airway into Trachea, Via Natural or Artificial Opening (ICD-10-PCS; 2018-09-27)
PROC: 05HM33Z Insertion of Infusion Device into Right Internal Jugular Vein, Percutaneous Approach (ICD-10-PCS; 2018-09-27)
PROC: 0W9B3ZZ Drainage of Left Pleural Cavity, Percutaneous Approach (ICD-10-PCS; 2018-10-01)
DX: A41.9 Sepsis, unspecified organism (principal); J96.01 Acute respiratory failure with hypoxia; E43 Unspecified severe protein-calorie malnutrition; J69.0 Pneumonitis due to inhalation of food and vomit; N17.0 Acute kidney failure with tubular necrosis; G93.41 Metabolic encephalopathy; N39.0 Urinary tract infection, site not specified; J90 Pleural effusion, not elsewhere classified; I50.32 Chronic diastolic (congestive) heart failure; E87.0 Hyperosmolality and hypernatremia; R65.20 Severe sepsis without septic shock; E87.5 Hyperkalemia; I27.20 Pulmonary hypertension, unspecified; L89.152 Pressure ulcer of sacral region, stage 2; E83.39 Other disorders of phosphorus metabolism; N18.9 Chronic kidney disease, unspecified; I48.2 Chronic atrial fibrillation; M81.0 Age-related osteoporosis without current pathological fracture; E11.9 Type 2 diabetes mellitus without complications; Z68.29 Body mass index [BMI] 29.0-29.9, adult; Z93.1 Gastrostomy status; Z79.84 Long term (current) use of oral hypoglycemic drugs
CPT/HCPCS: 32555; 36600; 82962; 83880; 84439; 87116; 87206; 88344; 92526-GN; 92610-GN; 94150; 97110-GP; 97530-GP; A4628; C1729; G0378; J0132; J0696; J1100; J1160; J1720; J1815; J1940; J1956; J2250; J2270; J2765; J2930; J3010; J3370; J3475; J3480; J3490; J7030; J7040; J7050; J7060; J7613; J7620; J7626; Q0092; Q9967

== ENCOUNTER 2018-10-16 20:45 | Inpatient (IN) | payer OTHER ==
[~2018-10-16] VITALS: Ht 157.5 cm; Wt 58.5 kg
[~2018-10-16 20:45] MED LIST changes: +ACETAZOLAMIDE250 MG PO; +ACULAR LS5 ML; +APAP500 MG GT; +BUDESONIDE0.25 MG/2 IH; +CARVEDILOL6.25 M1 PO; +DILTIAZEM HCL120 M2 PO; +EFFER-K20 MEQ GT; +HEPARIN NS IV; +HEPARIN SO5000 UNIT/ IJ; +LACTULOSE10 GM/152 PO; +LASIX20 MG PO; +[UNRECOGNIZED DRUG - CODE] PO; +[UNRECOGNIZED DRUG - OTHER] IV
--- NOTE | 2018-10-16 20:59 | NUR ---
PT BIB [facility], PER MEDIC THE STAFF AT [facility] CALLED 911 WITH C/O SHORTNESS OF BREATH AND LETHARGY ELECTROTYPER APPRENTICE. PT WAS RELEASED FROM [facility] [place] AND TREATED FOR A UTI AND PNEUMONIA. PER MEDIC. PT FINISHED MEDICATIONS FOR TREATMENTS 3 DAYS AGO. PER MEDIC, UPON THEIR ARRIVAL TO [facility] PT SPO2 WAS 93% ON 3L O2 VIA NASAL CANULA, PER MEDIC 1 BREATHING TREATMENT WAS PERFORMED ELECTROTYPER APPRENTICE. PER MEDIC BLOOD GLUCOSE IS 163, ON SCENE GCS WAS 8. PER MEDIC 2 UNSUCCESSFUL ATTEMPTS MADE TO PLACE IV. NO IV ACCESS ESTABLISHED ON PRESENTATION, PT HAD EYES CLOSED, GCS: 2,2,4 =8 AT THIS TIME, GARBLED SPEECH, UNABLE TO FOLLOW COMMANDS, MOVING ALL EXTREMITIES ON HER OWN, RESP E/U, DIMINSHED LUNG SOUNDS NOTED TO BILATERAL BASES, BLANCHABLE SKIN NOTED TO SACRUM, G-TUBE NOTED TO LLQ, SKIN IS DRY, WARM AND PINK. PT PLACED IN FULL CM, A-FIB NOTED AT THIS TIME, MD AWARE. AWAITING MSE BY . PT ON 1L O2 VIA NC AT THIS TIME, SPO2 @95%. WILL CONT TO MONITOR. PER MEDIC PATIENT'S DAUGHTER IS ON HER WAY TO HOSPITAL. SIDERAIL X2 UP FOR SAFETY AND BED IN LOWEST POSITION.
[2018-10-16 21:42] LABS: BASOPHIL % 0.2 % (0-2); PLATELET COUNT 161 x10^3mcL (130-400)
[2018-10-16 21:44] LABS: RED CELL DISTRIBUTION WIDTH 18.8 % (11.5-14.5)
[2018-10-16 21:49] LABS: CALCIUM 8.6 mg/dL (8.5-10.1); CARBON DIOXIDE 35.1 mmol/L (21-32); CHLORIDE SERUM 103 mmol/L (98-107); CREATININE SERUM 0.5 mg/dL (0.6-1.0); GLUCOSE SERUM 137 mg/dL (74-106); SODIUM SERUM 142 mmol/L (136-145)
[2018-10-16 21:54] LABS: ALBUMIN 2.6 g/dL (3.4-5.0); ALKALINE PHOSPHATASE 141 U/L (46-116); ALT/SGPT 13 U/L (14-59); AST/SGOT 21 U/L (15-37); BILIRUBIN TOTAL 0.9 mg/dL (0.20-1.00); TOTAL PROTEIN, SERUM 6.8 g/dL (6.4-8.2)
--- NOTE | 2018-10-16 22:03 | NUR ---
PLACED URINARY STRAIGHT CATHETER TO OBTAIN URINE SAMPLE. PT TOLERATE WELL. NO SIGNS OF DISTRESS NOTED.
[2018-10-16 22:19] LABS: UA SPECIFIC GRAVITY <=1.005 (1.005-1.035); microscopic required? YES; urine erythrocyte 2+ (NEGATIVE)
--- NOTE | 2018-10-16 22:25 | NUR ---
BOOK PUBLISHER AT BEDSIDE FOR LAB DRAW
--- NOTE | 2018-10-16 23:01 | NUR ---
MEDICATE PT PER MD ORDERS, SEE EMAR, ALBUMNIN INFUSING NO PROB, NO INFILTRATION NOTED OR PAIN AT IV SITE.
--- NOTE | 2018-10-16 23:57 | NUR ---
PT TAKEN OFF THE FLOOR VIA GURNEY TO CT. NO DISTRESS NOTED.
[2018-10-17] VITALS (18 sets, daily range): BP systolic 93–130; BP diastolic 43–74
--- NOTE | 2018-10-17 01:12 | NUR ---
INCREASED RESPIRATORY RATE NOTED. RESP SHALLOW AND EVEN, RESP 36BPM, SPO2 @75%, PLACED NONREBREATHER MASK TO PATIENT, SPO2 IMPROVED TO 96% ON 15L O2. NOTIFIED DR RED. DR RED REASSESSED PATIENT, ORDERED A BREATHING TREATMENT STAT. RT NOTIFIED. WILL CONT TO MONITOR.
--- NOTE | 2018-10-17 01:17 | NUR ---
RT AT BEDSIDE FOR BREATHING TREATMENT TO PATIENT.
--- NOTE | 2018-10-17 01:36 | NUR ---
BREATHING TREATMENT FINISHED. RT PLACED PT ON NON REBREATHER FACE MASK AT 15L O2. SPO2 @100% AT THIS TIME. RESP SHALLOW/EVEN, 36 BREATHS PER MINUTE NOTED.
--- NOTE | 2018-10-17 01:42 | NUR ---
RT AT BEDSIDE FOR ARTIAL BLOOD GAS COLLECTION. DR YUNG PAGED TO REASSESS PATIENT.
--- NOTE | 2018-10-17 01:50 | NUR ---
DR KAUR AND DR YUNG AT [facility] FOR REASSESMENT OF PATIENT.
--- NOTE | 2018-10-17 02:10 | NUR ---
PER DR RED PT TO BE INTUBATED.
[2018-10-17] MEDS ORDERED: CRESTOR20 M1 PO (02:14)
[2018-10-17] MEDS ORDERED: POTASSIUM40 MEQ/11 TF (02:14)
[2018-10-17] MEDS ORDERED: ALENDRONATE SOD70 M3 TF (02:15)
--- NOTE | 2018-10-17 02:20 | NUR ---
DR RED AT BEDSIDE FOR INTUBATION TO PATIENT, RT AT BEDSIDE AT THIS TIME.
--- NOTE | 2018-10-17 02:40 | NUR ---
SOFT RESTRAINTS PLACED TO BILATERAL DISTAL EXTREMITIES FOR MEDICAL RESTRAINT. PT IS INTUBATED AT THIS TIME.
[2018-10-17] MEDS ORDERED: GOOD NEIGH1200 MG/15 PO (02:41)
--- NOTE | 2018-10-17 02:45 | NUR ---
PROPOFOL DRIP INFUSING AT 5MCG/KG/MIN AT THIS TIME. NO TITRATION NEEDED, RSS=4 RT AT THE BEDSIDE AT THIS TIME
--- NOTE | 2018-10-17 03:05 | NUR ---
FLORENTINO CATHETER INSTERTED, PT TOLERATED WELL, NO SIGNS OF DISTRESS.
--- NOTE | 2018-10-17 03:08 | NUR ---
PROPOFOL DRIP INFUSING AT 5MCG/KG/MIN AT THIS TIME. NO TITRATION NEEDED, RSS=4, MD MADE AWARE OF VITAL SIGNS, PER MD CONTINUE PLAN OF CARE.
--- NOTE | 2018-10-17 03:10 | NUR ---
OG TUBE PLACED BY KAYODE BOCANEGRA RN. PT TOLERATED WELL. AWAITING PLACEMENT CONFIRMATION VIA XRAY
--- NOTE | 2018-10-17 03:20 | NUR ---
CORRECT OG TUBE PLACEMENT VERIFIED BY X-RAY TECH
--- NOTE | 2018-10-17 03:21 | NUR ---
PROPOFOL DRIP INFUSING @ 5MC/KG/MIN, NO INFILTRATION NOTED TO SITE, RSS=4, NO CHANGE IN PROPOFOL DRIP NEEDED AT THIS TIME. PT ON FULL CM, MD AWARE OF VSS, WILL CONT TO MONITOR
--- NOTE | 2018-10-17 03:25 | NUR ---
SPOKE TO JAMIL IN ICU, ADVISED EARLE IS UNABLE TO TAKE REPORT AT THIS TIME. JAMIL INFORMED ME THAT HE WOULD CALL BACK IN 5 MINUTES.
--- NOTE | 2018-10-17 03:33 | NUR ---
PROPOFOL DRIP INFUSING @ 5MC/KG/MIN, NO INFILTRATION NOTED TO SITE, RSS=4, NO CHANGE IN PROPOFOL DRIP NEEDED AT THIS TIME. PT ON FULL CM, VSS, WILL CONT TO MONITOR. DAUGHTER AT THE BEDSIDE.
--- NOTE | 2018-10-17 03:55 | NUR ---
PROPOFOL DRIP INFUSING @ 5MC/KG/MIN, NO INFILTRATION NOTED TO SITE, RSS=4, NO CHANGE IN PROPOFOL DRIP NEEDED AT THIS TIME. PT ON FULL CM, MD AWARE OF VSS, PER MD CONTINUE PLAN OF CARE. WILL CONT TO MONITOR
--- NOTE | 2018-10-17 04:03 | NUR ---
REPORT RECIEVED FROM ALMOND CUTTING MACHINE TENDER. NURSING UPDATES. POC DISCUSSED. AWAITING PT ARRIVAL.
--- NOTE | 2018-10-17 04:03 | NUR ---
GAVE REPORT TO EARLE BOWSER IN ICU WHO WILL BE ASSUMING FURTHER CARE OF THIS PATIENT.
--- NOTE | 2018-10-17 04:21 | NUR ---
RECIEVED PT FROM ER. TRANSFERED TO ICU. NURSING UPDATES POC DISCUSSED. PT INTUBATED AND SEDATED W/ PROPOFOL 5MCG/KG/MIN. RSS5. PT UNABLE TO RESPOND TO VERBAL COMMANDS. RESPONDS TO PAINFUL STIMULUS. NANCY PUPILS FIXED L EYE PUPIL 4MM, R EYE PUPIL 2MM BOTH NONREACTIVE TO LIGHT. VENTED TO AC MODE PEEP 5, VT 450, O2 50%, RR 14. NO S/S OF RESP DISTRESS. PULSES WEAK BUE&BLE. CAP REFILL < 3 SEC. HR NOTED W/ PREVIOUS AFIB. HR 71. SKIN W/ NOTED SACRAL AREA W/ REDNESS OPTIFOAM APPLIED. OGT AND PEG TUBE SECURE AND INTACT. R HAND AND R FA IV'S C/D/I. F/C SECURE AND INTACT DRAINING FREELY TO GRAVITY URINE JERRELL W/ FAIR OUTPUT. SOFT WRIST RESTRAINTS NANCY UPPER EXTREMITIES.
[2018-10-17 05:03] LABS: BASOPHIL % 0.5 % (0-2); PLATELET COUNT 145 x10^3mcL (130-400)
[2018-10-17 05:15] LABS: RED CELL DISTRIBUTION WIDTH 18.4 % (11.5-14.5)
[2018-10-17 05:28] LABS: CALCIUM 8.5 mg/dL (8.5-10.1); CARBON DIOXIDE 33.7 mmol/L (21-32); CHLORIDE SERUM 103 mmol/L (98-107); CREATININE SERUM 0.7 mg/dL (0.6-1.0); GLUCOSE SERUM 132 mg/dL (74-106); PHOSPHOROUS 3.5 mg/dL (2.5-4.9); POTASSIUM SERUM 3.7 mmol/L (3.5-5.1); SODIUM SERUM 145 mmol/L (136-145)
--- NOTE | 2018-10-17 06:46 | NUR ---
PT W/ NO ACUTE CHANGES. WILL ENDORSE TO ONCOMING NURSE.
--- NOTE | 2018-10-17 07:25 | NUR ---
THE PATIENT REMAINS INTUBATED AND SEDATED WITH PROPOFOL AT 5MCG/KG/MIN. THE PATIENT RESPONSIVE TO TACTILE STIMULI BUT UNABLE TO FOLLOW COMMANDS. NANCY PUPILS WITH SLUGGISH REACTION TO LIGHT, BUT LEFT NOTED IRREGULAR SHAPE. GAG REFLEX PRESENTS UPON SUCTIONING. PROPOFOL IS TITRATED DOWN TO 3MCG/KG/MIN. ETT 7.5 ETT IS SECURED IN PLACE AND AT 23CM AT LIPLINE. ETT TO VENT VIA VCV/AC MODE: FIO2 40%, RATE 18, VT 450, AND PEEP 5. ORAL CARE PROVIDED TO THE PATIENT. OGT REMOVED BY THE CHARGE NURSE ORDERED. TELE # 3 READS AFIB AT THIS TIME. PEG TUBE IN PLACE TO UPPER ABDOMEN AND CLAMPED AT THIS TIME. FLORENTINO CATH TO GRAVITY DRAINING DARK YELLOW COLORED URINE OUTPUT. IV SITES TO LFA AND LEFT WRIST. SOFT WRIST RESTRAINTS TO BOTH WRISTS TO PREVENT PATIENT FROM PULLING AT TUBE/LINE. SCDS APPLIED TO BLE. CALL LIGHT WITHIN REACH. SIDE RAILS UP X3. BED IS AT LOWEST POSITION. HEAD OF BED ELEVATED AND BLE ELEVATED.
--- NOTE | 2018-10-17 08:20 | NUR ---
MAKAYLA RT IS AT BEDSIDE AND TITRATES THE FIO2 FROM 40% DOWN TO 35%.
--- NOTE | 2018-10-17 09:28 | NUR ---
PROPOFOL DISCONTINUED ORDERED.
--- NOTE | 2018-10-17 09:58 | NUR ---
ISOGEL MATTRESS SET UP FOR THE PATIENT.
--- NOTE | 2018-10-17 09:58 | NUR ---
PEG TUBE IS CONNECTED TO TUBE FEEDING; TUBE FEEDING WITH GLUCERNA IS INITIATED AT 20ML/HR AND FREE WATER FLUSH 20ML Q4HR FOR THE PATIENT ORDERED.
--- NOTE | 2018-10-17 10:00 | NUR ---
THE SOFT RESTRAINTS REMOVED; THE PATIENT DOES NOT TOUCH THE TUBE/LINE.
--- NOTE | 2018-10-17 11:10 | NUR ---
DR. IRVING IS AT BEDSIDE EXAMING THE PATIENT.
--- NOTE | 2018-10-17 11:25 | NUR ---
DR. NEAL-POTATO BUCKER IS AT BEDSIDE WITH THE CHARGE NURSE. DOCTOR IS EXAMING THE PATIENT. UPDATE PROVIDED TO THE DOCTOR.
[2018-10-17 13:24] LABS: PLATELET COUNT 130 x10^3mcL (130-400)
[2018-10-17 13:27] LABS: BASOPHIL % 0 % (0-2)
--- NOTE | 2018-10-17 13:37 | NUR ---
IV SITE AT LEFT WRIST LEAKING. THE HEPLOCK REMOVED WITH CATH INTACT. NEW IV SITE INSERTED TO RIGHT HAND WITH # 22G.
--- NOTE | 2018-10-17 15:00 | NUR ---
NO GASTRIC RESIDUAL NOTED AT THIS TIME. TUBE FEEDING RATE INCREASED FROM 20ML/HR TO 30ML/HR TO REACH THE GOAL ORDERED.
--- NOTE | 2018-10-17 16:30 | NUR ---
PATIENT IS GIVEN A BED BATH. GOWN AND LINEN CHANGED.
--- NOTE | 2018-10-17 18:47 | NUR ---
PATIENT REMAINS ON VENT VIA VCV/AC MODE: FIO2 30%, RATE 18, VT 450 AND PEEP 5 WITH NO SEDATION. THE PATIENT STILL CLOSING EYES; OPENING EYES TO TACTILE/PAINFUL STIMULI, THEN CLOSING HER EYES AGAIN. THE FAMILY IS AT BEDSIDE.
--- NOTE | 2018-10-17 19:05 | NUR ---
RECEIVED REPORT FROM FRANSISCA BOWSER. WILL RESUME CARE.
--- NOTE | 2018-10-17 19:20 | NUR ---
RECEIEVED PT INTUBATED WITH NO SEDATION. PT IS RESPONSIVE TO PAINFUL STIMULI. UNABLE TO FOLLOW COMMANDS. L PUPIL 4MM IRREGULAR, SLUGGISH AND R PUPIL 3MM SLUGGISH. 7.5 ETT AT 23CM LL INTACT AND SECURED. ON VENT VCV-AC MODE WITH SETTINGS OF VT 450, R 18, FIO2 30%, AND PEEP 5. BREATHING E/U. LUNG SOUNDS CLEAR TO UPPER LOBES AND DIMINISHED TO BASES. S1S2 AUSCULATATED WITH NO MURMURS NOTED. A FIB. ON FOOT MITER OPERATOR. NO S/SX OF ANY PAIN NOTED. R HAND 22G AND L FOREARM IV SITES WNL, DRESSINGS CDI. CAP REFILL < 3 SEC. +1 PITTING EDEMA TO BUE AND TRACE EDEMA TO BLE. SCD'S IN PLACE TO BLE'S. ABDOMEN ROUND, NONTENDER. GLUCERNA 1.2 INCREASED FROM 30CC/HR TO 40CC/HR WITH GOAL FEED OF 50CC/HR. PLACEMENT CHECKED WITH NO RESIDUAL NOTED. NO N/V. FLORENTINO CATHETER IN PLACE DRAINING VIA GRAVITY YELLOW URINE. ECCYMOSIS TO BUE AND DARK DISCOLORATIONS TO BLE. OPTIFOAM TO SARCRAL AREA. BED IN LOW POSITION. CALL LIGHT WITHIN REACH. FAMILY AT BEDSIDE. WILL CONTINUE TO MONITOR.
--- NOTE | 2018-10-17 19:42 | NUR ---
DREDGE PIPE OPERATOR AT BEDSIDE FOR BLOOD DRAW.
[2018-10-17 20:30] LABS: BASOPHIL % 0.1 % (0-2); PLATELET COUNT 135 x10^3mcL (130-400)
[2018-10-17 20:34] LABS: RED CELL DISTRIBUTION WIDTH 18.8 % (11.5-14.5)
--- NOTE | 2018-10-17 21:24 | NUR ---
UPDATES PROVIDED ON PT TO DR. CROSS OVER TELEPHONE. NO NEW ORDERS AT THIS TIME.
--- NOTE | 2018-10-17 23:09 | NUR ---
NO RESIDUAL NOTED. GLUCERNA 1.2 INCREASED FROM 40CC/HR TO 50CC/HR, NOW AT GOAL FEED RATE.
--- NOTE | 2018-10-17 23:29 | NUR ---
PT HAD TEMP OF 100.4. GIVEN TYLENOL 650MG 2 TABS VIA PEG TUBE. COOLING MEASURES IN PLACE. WILL REASSESS.
[2018-10-18] VITALS (16 sets, daily range): BP systolic 91–134; BP diastolic 52–83
--- NOTE | 2018-10-18 04:33 | NUR ---
AUTOMATIC PATTERN EDGER AT BEDSIDE FOR BLOOD DRAW.
--- NOTE | 2018-10-18 04:45 | NUR ---
DR. BLEDSOE AT BEDSIDE ASSESSING PT. UPDATES PROVIDED.
[2018-10-18 05:18] LABS: BASOPHIL % 0.1 % (0-2); PLATELET COUNT 127 x10^3mcL (130-400); RED CELL DISTRIBUTION WIDTH 18.8 % (11.5-14.5)
[2018-10-18 05:25] LABS: CALCIUM 8.3 mg/dL (8.5-10.1); CHLORIDE SERUM 103 mmol/L (98-107); CREATININE SERUM 0.9 mg/dL (0.6-1.0); GLUCOSE SERUM 157 mg/dL (74-106); PHOSPHOROUS 4.1 mg/dL (2.5-4.9); POTASSIUM SERUM 3.4 mmol/L (3.5-5.1); SODIUM SERUM 143 mmol/L (136-145)
--- NOTE | 2018-10-18 06:05 | NUR ---
DR. YUNG MADE AWARE OF LAB VALUE K+ 3.4.
--- NOTE | 2018-10-18 07:56 | NUR ---
VENT RATE DECREASED DOWN TO 14 FROM 18 AND VT DECREASED TO 400 FROM 450 D/T RESP ALKALOSIS PER DR. VALDIVIA. MAGGIE CONTINE TO MONITOR.
--- NOTE | 2018-10-18 08:24 | NUR ---
NOTED CRITICAL CXR FINDING BUT DID NOT RECIEVE PHONE CALL FROM RADIOLOGY IN REGARDS TO CRITICAL FINDING. DR. VALDIVIA PAGED AND NOTIFIED PER CXR ETT IS 0.7CM BEYOND BELLA. ORDERS RECIEVED TO RETRACT ETT 2CM. RT DOTTIE IN UNIT AND MADE AWARE. PRIMARY RN ALSO MADE AWARE.
--- NOTE | 2018-10-18 08:33 | NUR ---
RADIOLOGY CALLED REGARDING CXR WITH ETT TERMINATING IN R MAINSTEM BRONCHUS. DR. VALDIVIA AND RT AWARE, ETT TO BE WITHDRAWN AND PLACEMENT TO BE REEVALUATED WITH F/U CXR. WILL CONTINUE TO MONITOR PT.
--- NOTE | 2018-10-18 08:46 | NUR ---
RT ARIAS WITHDREW ETT TO 21 CM @ LL.
--- NOTE | 2018-10-18 09:30 | NUR ---
DR. CHILDERS AND RESIDENTS ROUNDED ON PT AT BEDSIDE. UPDATES PROVIDED, QUESTIONS ADDRESSED. NO CHANGES TO POC AT THIS TIME.
--- NOTE | 2018-10-18 09:32 | NUR ---
PT FOUND HAVING TONIC CLONIC SEIZURE THAT LASTED ~45 SEC WHEN XRAY WAS AT BEDSIDE DOING CHEST XRAY. SEIZURE STOPPED, THEN PT GIVEN 50MCG FENTANYL IVP & 1MG VERSED IVP. WILL CONTINUE TO MONITOR.
--- NOTE | 2018-10-18 12:07 | NUR ---
PT HAD A SECOND TONIC CLONIC SEIZURE LASTING 1 MINUTE, STOPPED WITHOUT INTERVENTION. RIGHT PUPIL 3MM, SLUGGISH RESPONSE TO LIGHT & LEFT PUPIL IRREGULAR SHAPE, NO RESPONSE TO LIGHT. PT GIVEN 50 MCG FENTANYL AND 1 MG VERSED IVP AFTER SEIZURE STOPPED. PT NOT WITHDRAWING TO PAINFUL STIMULUS, (+) COUGH, (-) GAG REFLEX WITH SUCTIONING OROPHARYNX WITH YANKAUER. WILL CONTINUE TO MONITOR PT.
--- NOTE | 2018-10-18 12:45 | NUR ---
TELECONSULT WITH NEUROLOGIST COMPLETED. PT'S CONDITION RELAYED TO , QUESTIONS ANSWERED. NEUROLOGIST SAID HE WILL FOLLOW UP WITH DR. CULLEN.
--- NOTE | 2018-10-18 14:12 | NUR ---
RETURNED TO UNIT FROM STAT HEAD CT. PT TOLERATED TRANSPORT AND SCAN WELL, PT STABLE IN ROOM AT THIS TIME. AWAITING RESULTS TO BE READ. WILL CONTINUE TO MONITOR PT.
--- NOTE | 2018-10-18 15:05 | NUR ---
TUBE FEEDINGS REPLACED AT THIS TIME. PT TOLERATING WELL. WILL CONTINUE TO MONITOR.
--- NOTE | 2018-10-18 15:40 | NUR ---
DAUGHTER OF PT, MAKAYLA, AT BEDSIDE.
--- NOTE | 2018-10-18 19:30 | NUR ---
RECEIVED REPORT AND PT FROM MINI BOWSER. RECEIVED PT INTUBATED, NO SEDATION DRIPS AT THIS TIME. PT UNABLE TO FOLLOW SIMPLE COMMANDS, RESPONDS TO PAINFUL STIMULI. PUPIL 3MM BRISK RESPONSE TO LIGHT TO RIGHT EYE, LEFT EYE CATARACT SX, FIXED RESPONSE. PT EYES DO NOT OPEN SPONTANEOUSLY, DOES DOT TRACK. NO FACIAL DROOP NOTED. SEIZURE PRECAUTIONS INTACT, NONE AT THIS TIME.PT INTUBATED TO VENT, INTACT. TRACHEA MIDLINE, NO DRAINAGE TO EENT. NO JVD NOTED.LUNG SOUNDS CLEAR TO BUL AND CLEAR TO BLL. ORAL CARE PROVIDED PER VAP PROTOCOL. 7.5 ETT, 21 LL. VENT SETTINGS VCV-AC MODE, FIO2 30%, RATE 14, VT 400, PEEP 5. CHEST RISE/FALL SYMMETRIC, E/U BREATHING, NO ACUTE RESP DISTRESS.S1/S2 SOUNDS, NO S/S OF CHEST PAIN. AFIB ON MONITOR, CONTROLLED RATE.SKIN COLOR CONSISTENT WITH ETHNICITY, CAP REFILL <3 SEC X4 EXTREMITIES, PULSES MODERATE TO BUE, WEAK BUT PALPABLE TO BLE. TRACE EDEMA TO BLE. SCD'S INTACT TO BLE. NS INFUSING @ 50 ML/HR.GEN WEAKNESS NOTED. NO CONTRACTURES/DEFORMTIES, PT ON TURN SCHED Q2H. NO RESTRAINTS AT THIS TIME, WILL REASSESS NEED. NO JOINT SWELLING/TENDERNESS.PEG TO LUQ, INFUSING GLUCERNA @ 50 ML/HR, FWF 20 ML Q4H. GRV=10 ML.ACTIVE BOWEL SOUNDS X4 QUADRANTS, ABD SOFT/FLAT. NO BM NOTED.F/C DRAINING TO GRAVITY JERRELL URINE, NO LABIAL EDEMA OR DISCHARGE NOTED, INTACT AND SECURED.IV TO RH, LFA, PORTS PATENT, NO S/S OF INFILTRATION, DRESSING CDI. SKIN WARM/DRY TO TOUCH. HEALING WOUND NOTED TO SACRUM, OPTIFOAM CDI. UPPER LIP HEALING SCAB NOTED, CLARY. DARK DISCOLORATION NOTED TO BLE, ECCHYMOSIS NOTED TO BUE, INTACT. BED AT LOWEST SETTING, CALL LIGHT WITHIN REACH. HOB ELEVATED 30 DEGREES. TEACHING PROVIDED TO FAMILY. WILL CONT TO MONITOR.
--- NOTE | 2018-10-18 20:45 | NUR ---
RT THUY AT BEDSIDE FOR BREATHING TREATMENT.
[2018-10-19] VITALS (18 sets, daily range): BP systolic 96–124; BP diastolic 49–77; Ht 157.5 cm; Wt 58.5 kg
--- NOTE | 2018-10-19 00:04 | NUR ---
DR. COLOR[place]O AT BEDSIDE FOR ASSESSMENT. UPDATES PROVIDED. INFORMED HIM OF PT'S TUBE FEEDING CLARIFICATION AND PT'S I/O STATUS.
--- NOTE | 2018-10-19 01:27 | NUR ---
TITRATED TUBE FEEDING FWF TO 50 ML Q4H PER MD ORDER.
[2018-10-19 05:40] LABS: BASOPHIL % 0.2 % (0-2); PLATELET COUNT 132 x10^3mcL (130-400)
[2018-10-19 05:45] LABS: RED CELL DISTRIBUTION WIDTH 18.7 % (11.5-14.5)
[2018-10-19 05:48] LABS: CALCIUM 7.8 mg/dL (8.5-10.1); CARBON DIOXIDE 31.4 mmol/L (21-32); CHLORIDE SERUM 104 mmol/L (98-107); CREATININE SERUM 0.8 mg/dL (0.6-1.0); GLUCOSE SERUM 132 mg/dL (74-106); MAGNESIUM 2.2 mg/dL (1.8-2.4); PHOSPHOROUS 3.7 mg/dL (2.5-4.9); POTASSIUM SERUM 4.2 mmol/L (3.5-5.1); SODIUM SERUM 141 mmol/L (136-145)
--- NOTE | 2018-10-19 06:08 | NUR ---
CIRCULAR STUFFER AT [facility] FOR CHEST XRAY.
--- NOTE | 2018-10-19 07:05 | NUR ---
GAVE REPORT TO WU BOWSER. UPDATES GIVEN, QUESTIONS ANSWERED. ENDORSED CARE.
--- NOTE | 2018-10-19 07:20 | NUR ---
TONIC CLONIC SEIZURE OCCURED AT THIS TIME, APPROXIAMTELY 30 SECONDS. PATIETS HOB ELEVATED, AND SUCTIONING WAS DONE NEEDED. VERSED WAS GIVEN, SEE EMAR. SEIZURE PRECAUTIONS TAKEN. WILL CONTINUE TO MONITOR.
--- NOTE | 2018-10-19 07:20 | NUR ---
PATIENT IN BED, BED TO THE LOWEST POSITION. PT IS INTUBATED, AC MODE AT A RATE OF 14,PEEP OF 5, TIDAL VOLUME OF 400 AND RATE FIO2 OF 30%. PATIENT IS BREATHING ADEQUATELY AND THERE ARE NO SIGNS OF RESPIRATORY DISTRESS NOTED. PATIENT IS UNABLE TO FOLLOW COMMANDS. PT OPENS EYES SPONTANEOUSLY AT THIS TIME. DEEP TISSUE MASSAGE THERAPIST IN PLACE, AFIB. PT HAS LUQ PEG NOTED. TUBE FEEDINGS INFUSING AT THIS TIME AT 50 ML/HR WITH 50 FWF Q4. IV ACCESS NOTED TO RH AND LFA. N/S INFUSING AT THIS TIME, 50 ML/HR. PATIENTS HEELS ARE OFF LOADED WITH PILLOWS. BILATERAL SEQUENTIAL DEVICES NOTED TO BLE. PATIENT STABLE, WILL CONTINUE TO MONITOR.
--- NOTE | 2018-10-19 08:32 | NUR ---
DR. VALDIVIA AT BEDSIDE, ALL UPDATES GIVEN. DR. VALDIVIA INFORMED OF PATIENTS SEIZURES YESTERDAY AND TODAY. PER DR. VALDIVIA WILL CHANGE [facility] ORDER. WILL AWAIT ORDER AT THIS TIME.
--- NOTE | 2018-10-19 08:36 | NUR ---
DR. VALDIVIA IN UNIT TO SEE AND ASSESS PT. UPDATES PROVIDED BY PRIMARY RN. PER DR. VALDIVIA INCREASE KEPPRA TO 1,000 MG Q12 HRS. WILL CARRY OUT ORDERS AND CONT TO MONITOR.
--- NOTE | 2018-10-19 10:32 | NUR ---
Initial Nutrition Assessment: IC03/A MARIE IBRAHIM IA HR Dx: UTI PMHx: Afib, recurrent UTIs, dementia, HTN, DM, pulmonary HTN, aortic stenosis, CHF, tricuspid insufficiency, anemia PSHx: not documented Labs: BG 132H, BUN 22H, HGB 8.2L Meds: Colace, D 50%, humulin, Levaquin, Lipitor, vancomycin, zofran Diet: Glucerna 1.2 @ 20 ml/hr, goal 50 ml/hr PO Intake: NPO Ht: 157.48 cm (62") Wt: 59 kg (130#) BMI: 23.8 kg/m2 Bed scale: 59 kg IBW: 110# (50 kg) %IBW: 118 UBW: unable to access Age: 83/F Food Allergies: Iodine Skin: upper lip scab/ open wound noted, dark discoloration to BLE, heeled wound noted to sacrum Presley: 11 Edema: none GI: Last BM: none Per H&P, Pt is a 83 year old female with PMH of Afib, recurrent UTIs, dementia, HTN, DM, pulmonary HTN, aortic stenosis, CHF, tricuspid insufficiency, anemia, was brought in with altered level consciousness. Patient was recently discharged from [facility] last Thursday after treating pneumonia and sepsis [facility]. RDN Visit (10/19): Pt is intubated and on ventilator. Patient is not sedated however she was sleeping. Glucerna 1.2 was running @ goal rate of 50 ml/hr, FWF 250 ml Q6H. Per NIELS Buck, pt is tolerating tube feeding with no residuals. Patient has not had a BM since a few days. Per progress note (10/18), pt has Metabolic encephalopathy 2/2 healthcare acquired pneumonia vs UTI Problem with: N/V/D/C: none, slight constipation Problems with: Chewing/Swallowing: on tube feedings Current appetite: unable to access Recent wt change: unable to access %wt change: n/a Vitamin/Supplement use: unable to access Special diet at home: unable to access Physical activity: unable to access, currently bed bound Nutrition education given: Not possible at this time. Food-drug interactions: Colace- high fiber w/4793-8640 ml fluids Education given: n/a Estimated Nutritional Needs Based on current body weight 59 kg Energy: 1646-2703 vs 1190 kcal/d (30-35 kcal/kg vs PSU 2003) Protein: 71-83 g/d (1.2-1.4 g/kg) - UTI, inflammation Fluid: 7275-2689 ml/d (1 ml/kcal) or per doctor Nutrition Diagnosis 1. Increased nutrient needs related to increased metabolic demands as evidenced by patient on ventilator. 2. Malnutrition related to recurrent hospitalizations in the past as evidenced by muscle wasting. Intervention 1. Recommend continuing Glucerna 1.2 @ 50 ml/hr, FWF (per MD). This will provide 1440 kcal and 72g protein. This will meet >75% of estimated calorie and 100% estimated protein needs of the patient. Monitor/Evaluate Goal: TF intake at least 75% of estimated needs Monitor: TF intake/tolerance, Labs, GI function F/U in 2-3 days as high risk 10/21-
--- NOTE | 2018-10-19 11:09 | NUR ---
UPON ASSESSMENT, PATIENT HAD A TEMPERATURE OF 100.0 ON TWO CONSECUTIVE CHECKS. COOLING MEASURES APPLIED AT THIS TIME. WILL REASSESS.
--- NOTE | 2018-10-19 12:00 | NUR ---
TEMPERATURE REASSESSED AT THIS TIME, AND STABLE, 99.1. WILL CONTINUE TO MONITOR.
--- NOTE | 2018-10-19 16:33 | NUR ---
PATIENT IN BED FREE FROM ANY DISTRESS AT THIS TIME. WILL CONTINUE TO MONTIOR.
--- NOTE | 2018-10-19 17:30 | NUR ---
PATIENTS DAUGHTER AT BEDSIDE ASKING TO SPEAK TO RESIDENT. DR. CULLEN PAGED AT THIS TIME.
--- NOTE | 2018-10-19 17:39 | NUR ---
DR. CULLEN AT BEDSIDE SPEAKING WITH DAUGHTER ABOUT PATIENTS UPDATES AND PLAN FOR PATIENT.
--- NOTE | 2018-10-19 17:48 | NUR ---
DR. CULLEN AT BEDSIDE UPDATING FAMILY ON PATIENT. PER DR. CULLEN HE WOULD LIKE THE FAMILY TO SPEAK WITH DR. VALDIVIA. FAMILY STATES THAT THEY WOULD LIKE FOR A FAMILY MEETING TOMORROW, 10/[address] VALDIVIA PAGED AT THIS TIME.
--- NOTE | 2018-10-19 17:51 | NUR ---
DR. VALDIVIA CALLED AT THIS TIME AND STS THAT SHE WILL BE HERE TOMORROW, 10/20 AT 6PM FOR FAMILY MEETING. DAUGHTER MADE AWARE AT THIS TIME.
--- NOTE | 2018-10-19 18:45 | NUR ---
PER DAUGHTER SHE CAN NOT BE HERE TOMORROW FOR FAMILY MEETING AND WOULD LIKE TO RESCHEDULE FOR THURSDAY, DR. VALDIVIA PAGED AT THIS TIME.
--- NOTE | 2018-10-19 18:48 | NUR ---
DR. VALDIVIA CALLED BACK AT THIS TIME AND STS THURSDAY AT 1800 IS OK FOR FAMILY MEETING.
--- NOTE | 2018-10-19 19:05 | NUR ---
REPORT GIVEN TO NIELS TRIANA. ALL QUESTIONS ANSWERED.
--- NOTE | 2018-10-19 19:30 | NUR ---
RECEIVED PT INTUBATED, NO SEDATION DRIPS AT THIS TIME. PT UNABLE TO FOLLOW SIMPLE COMMANDS, RESPONDS TO PAINFUL STIMULI. PUPIL 3MM BRISK RESPONSE TO LIGHT TO RIGHT EYE, LEFT EYE CATARACT SX, FIXED RESPONSE. PT EYES OPEN SPONTAN BUT DOES NOT TRACK. NO FACIAL DROOP NOTED. SEIZURE PRECAUTIONS INTACT, NONE AT THIS TIME.PT INTUBATED TO VENT, INTACT. TRACHEA MIDLINE, NO DRAINAGE TO EENT. NO JVD NOTED.LUNG SOUNDS CLEAR TO BUL AND DIM TO BLL. ORAL CARE PROVIDED PER VAP PROTOCOL. 7.5 ETT, 21 LL. VENT SETTINGS VCV-AC MODE, FIO2 30%, RATE 12, VT 400, PEEP 5. CHEST RISE/FALL SYMMETRIC, E/U BREATHING, NO ACUTE RESP DISTRESS.S1/S2 SOUNDS, NO S/S OF CHEST PAIN. AFIB ON MONITOR, CONTROLLED RATE.SKIN COLOR CONSISTENT WITH ETHNICITY, CAP REFILL <3 SEC X4 EXTREMITIES, PULSES MODERATE TO BUE/BLE. SCD'S INTACT TO BLE.GEN WEAKNESS NOTED. NO CONTRACTURES/DEFORMTIES, PT ON TURN SCHED Q2H. NO RESTRAINTS AT THIS TIME, WILL REASSESS NEED. NO JOINT SWELLING/TENDERNESS.PEG TO LUQ, INFUSING GLUCERNA @ 50 ML/HR, FWF 250 ML Q6H. GRV=10 ML AND REPLACED.ACTIVE BOWEL SOUNDS X4 QUADRANTS, ABD SOFT/FLAT. NO BM NOTED.F/C DRAINING TO GRAVITY JERRELL URINE, NO LABIAL EDEMA OR DISCHARGE NOTED, INTACT AND SECURED.IV TO RH, LFA, PORTS PATENT, NO S/S OF INFILTRATION, DRESSING CDI. SKIN WARM/DRY TO TOUCH. UPPER LIP SCAB AND OPEN WOUND NOTED, CLARY. HEALED SACRAL WOUND NOTED, ZGUARD APPLIED, WITH OPTIFOAM CDI. DARK DISCOLORATION NOTED TO BLE, ECCHYMOSIS NOTED TO BUE, INTACT AND PATIENT CARE ASSOCIATE. HEELS AND BLE OFFLOADED WITH PILLOWS ,PT ON TURN SCHED Q2H. TEACHING PROVIDED TO FAMILY. HOB ELEVEATED 30 DEGREES, CALL LIGHT WITHIN REACH, BED AT LOWEST SETTING. WILL CONT TO MONITOR.
--- NOTE | 2018-10-19 20:03 | NUR ---
PT HAD A TONIC CLONIC SEIZURE OCCURED AT THIS TIME, APPROXIAMTELY 15 SECONDS. PATIETS HOB ELEVATED, AND SUCTIONING AROUND MOUTH FOR SECRETIONS. VERSED WAS GIVEN, SEE EMAR. SEIZURE PRECAUTIONS INTACT. WILL CONTINUE TO MONITOR.
[2018-10-20] VITALS (16 sets, daily range): BP systolic 91–134; BP diastolic 50–84
--- NOTE | 2018-10-20 03:05 | NUR ---
PT HAD A SMALL BROWN BM. PERIAREA CLEANED AND Z-GAURD PLACED TO SACRAL COCCYX WITH NEW OPTIFOAM PLACED, CDI. PROVIDED PT WITH TOTAL BED BATH, CHUCKS, GOWN, LINEN CHANGED. FLORENTINO CARE PROVIDED.
--- NOTE | 2018-10-20 04:18 | NUR ---
DR. CULLEN AT [facility] FOR ASSESSMENT. UPDATES PROVIDED BY NURSING. NO NEW ORDERS AT THIS TIME.
--- NOTE | 2018-10-20 04:19 | NUR ---
SUE LEWIS AT [facility] FOR BLOOD DRAW.
[2018-10-20 04:39] LABS: PLATELET COUNT 134 x10^3mcL (130-400)
[2018-10-20 04:50] LABS: CALCIUM 7.6 mg/dL (8.5-10.1); CARBON DIOXIDE 29.9 mmol/L (21-32); CHLORIDE SERUM 104 mmol/L (98-107); CREATININE SERUM 0.8 mg/dL (0.6-1.0); GLUCOSE SERUM 141 mg/dL (74-106); MAGNESIUM 2.2 mg/dL (1.8-2.4); PHOSPHOROUS 2.9 mg/dL (2.5-4.9); POTASSIUM SERUM 3.7 mmol/L (3.5-5.1); SODIUM SERUM 141 mmol/L (136-145)
[2018-10-20 05:05] LABS: BASOPHIL % 0 % (0-2); RED CELL DISTRIBUTION WIDTH 18.1 % (11.5-14.5)
--- NOTE | 2018-10-20 05:25 | NUR ---
RT THUY AT BEDSIDE FOR ABG.
--- NOTE | 2018-10-20 07:16 | NUR ---
GAVE REPORT TO NIELS ARENAS. UPDATES GIVEN, QUESTIONS ANSWERED. ENDORSED CARE.
--- NOTE | 2018-10-20 07:25 | NUR ---
THE PATIENT OPENS HER EYES SPONTANEOUSLY BUT UNABLE TO TRACK OR FOLLOW ANY SIMPLE COMMANDS. RIGHT PUPIL WITH BRISK REACTION TO LIGHT, AND LEFT PUPIL WITH IRREGULAR SHAPE. ETT 7.[address] TO THE FACE AND AT 21CM AT LIPLINE. ETT TO VENT VIA VCV/AC MODE: FIO2 30%, RATE 12, VT 400, AND PEEP 5. ORAL CARE PROVIDED TO THE PATIENT. TELE # 3 READS AFIB AT THIS TIME. PEG TUBE IN PLACE TO RIGHT UPPER ABDOMEN AND CONNECTED TO TUBE FEEDING WITH GLUCERNA AT 50ML/HR. AND FREE WATER FLUSH 250ML/Q6HR. FLORENTINO CATH TO GRAVITY DRAINING DARK YELLOW URINE OUTPUT. SCDS TO BLE. HEAD OF BED ELEVATED. SIDE RAILS UP X3 AND PADDED FOR SEIZURE PRECAUTION. BED IS AT LOWEST POSITION.
--- NOTE | 2018-10-20 07:51 | NUR ---
DR. VALDIVIA IS AT BEDSIDE AND SWITCHING THE VENT MODE FROM VCV/AC TO CPAP AT PEEP 5 AND PSV 15.
--- NOTE | 2018-10-20 07:51 | NUR ---
DR VALDIVIA AT BEDSIDE TO ASSESS PATIENT. UPDATES PROVIDED BY NURSING.
--- NOTE | 2018-10-20 08:00 | NUR ---
DR VALDIVIA SPOKE WITH PATIENT'S DAUGHTER VIA TELEPHONE AND PROVIDED PATIENT UPDATE. CONFIRMATION OF FAMILY MEETING TOMORROW 10/21/18 AT 1800 DISCUSSED. FAMILY IN AGREEMENT WITH PLAN.
--- NOTE | 2018-10-20 08:30 | NUR ---
RT MAKAYLA CHANGED THE CPAP MODE BACK TO VCV/AC MODE: FIO2 30%, RATE 12, VT 400, AND PEEP 5.
--- NOTE | 2018-10-20 08:30 | NUR ---
CALLED AND TALKED TO MAR, PHARMACIST; PER MAR, IT IS OK TO MEDICATE THE PATIENT WITH VANCO IV SCHEDULED THIS MORNING EVEN THOUGH VANCO TROUGH IS 16.1. WILL MEDICATE THE MED TO THE PATIENT.
--- NOTE | 2018-10-20 09:45 | NUR ---
DR. NASH AND THE TEAM ARE MAKING ROUND TO SEE THE PATIENT. UPDATE PROVIDED TO THE TEAM.
--- NOTE | 2018-10-20 11:00 | NUR ---
REASSESSMENT IMPLEMENTED TO THE PATIENT. GASTRIC RESIDUAL CHECKED 15ML AND REPLACED TO PEG. THE FAMILY IS AT BEDSIDE VISITING THE PATIENT.
--- NOTE | 2018-10-20 14:03 | NUR ---
THE PATIENT HAS SEZURE ABOUT <2 MINUTES. VERSED 1MG IVP MEDICATED TO THE PATIENT.
--- NOTE | 2018-10-20 15:06 | NUR ---
VERSED DRIP IS INITIATED AT 0.5MG/HR TO PREVENT THE PATIENT FROM SEIZURE PER DR. BERNAL'S AGREEMENT.
--- NOTE | 2018-10-20 15:37 | NUR ---
NEW BOTTLE OF GLUCERNA AND TUBING CHANGED FOR THE PATIENT.
--- NOTE | 2018-10-20 17:11 | NUR ---
THE OLD IV SITE AT [facility] LEAKING; THE HEPLOCK REMOVED WITH CATH INTACT. NEW IV SITE #22 INSERTED TO RFA NEXT TO THE OLD ONE. PATIENT TOLERATED WITH PROCEDURE.
--- NOTE | 2018-10-20 18:53 | NUR ---
THE PATIENT WAS GIVEN A BED BATH; GOWN CHANGED. PATIENT WAS RESTING IN BED CLOSING EYES. VERSED DRIP REMAINS AT 0.5MG/HR.
--- NOTE | 2018-10-20 19:04 | NUR ---
REPORT GIVEN TO PRAVEENA LEAL RN. CONCERNS WERE ADDRESSED.
--- NOTE | 2018-10-20 19:26 | NUR ---
RECEIVED REPORT FROM NIELS GONGORA. PT IS INTUBATED AND SEDATED ON VERSED 0.5 MG/HR. PT IS ALERT AND WAS ABLE TO TRACK DAUGHTER. LEFT PUPIL DILATED, AND RIGHT PUPIL PINPOINT, REACTION SLUGGISH. PT ON SEIZURE PRECAUTIONS AT THIS TIME. PT UNABLE TO FOLLOW COMMANDS. PT IS BREATHING E/U ON VENT. SETTINGS INCLUDE TV: 400, O2: 30%, PEEP: 5, RATE: 12. LUNG SOUNDS CLEAR TO BILATERAL UPPER LOBES, DIMINISHED TO BILATERAL LOWER LOBES. S1 S2 HEART SOUNDS AUSCULTATED. PERIPHERAL IV TO RIGHT HAND AND LEFT FA PATENT, DRESSING CDI. PULSES WEAK X4. SKIN IS WARM AND CONSISTENT WITH ETHNICITY. ABD IS SOFT AND FLAT WITH ACTIVE BOWEL SOUNDS X4Q. PEG TUBE PATENT AND INTACT. GLUCERNA INFUSING AT 50ML/HR. FLORENTINO DRAINING VIA GRAVITY. URINE IS JERRELL WITH FAIR OUTPUT. HEALED ULCER TO SACRUM WITH OPTIFOAM INTACT. DAUGHTER AT BEDSIDE. ALL QUESTIONS AND CONCERNS ANSWRED. WILL CONTINUE TO MONITOR.
--- NOTE | 2018-10-20 20:51 | NUR ---
ELANA, PROCUREMENT ACCOUNTANT AT BEDSIDE TO TALK ABOUT MEETING FOR TOMORROW WITH DR. VALDIVIA.
[2018-10-21] VITALS (12 sets, daily range): BP systolic 89–105; BP diastolic 52–66
--- NOTE | 2018-10-21 00:40 | NUR ---
DR. CROSS AT BEDSIDE FOR UPDATES. ALL QUESTIONS AND CONCERNS ANSWERED.
--- NOTE | 2018-10-21 02:30 | NUR ---
PAGE GATE DR. JACOBSONED ABOUT TRENDING DOWN BLOOD PRESSURE. MAP < 65. AWAITING A RESPONSE.
--- NOTE | 2018-10-21 03:00 | NUR ---
STILL NO RESPONSE FROM DR. COLOR[place]O. WILL PAGE ON PHONE AGAIN ABOUT TRENDING DOWN BLOOD PRESSURE < 65 MAP.
--- NOTE | 2018-10-21 04:48 | NUR ---
DR. JACOBSONED AT BEDSIDE FOR UPDATES. ALL QUESTIONS AND CONCERNS ANSWERED. MADE AWARE OF TRENDING DOWN BLOOD PRESSURE.
[2018-10-21 04:58] LABS: BASOPHIL % 0.1 % (0-2); PLATELET COUNT 138 x10^3mcL (130-400)
[2018-10-21 05:02] LABS: RED CELL DISTRIBUTION WIDTH 18.5 % (11.5-14.5)
[2018-10-21 05:06] LABS: CALCIUM 7.4 mg/dL (8.5-10.1); CARBON DIOXIDE 29.4 mmol/L (21-32); CHLORIDE SERUM 102 mmol/L (98-107); CREATININE SERUM 0.7 mg/dL (0.6-1.0); GLUCOSE SERUM 121 mg/dL (74-106); MAGNESIUM 2.1 mg/dL (1.8-2.4); PHOSPHOROUS 2.6 mg/dL (2.5-4.9); POTASSIUM SERUM 4.1 mmol/L (3.5-5.1); SODIUM SERUM 137 mmol/L (136-145)
--- NOTE | 2018-10-21 07:23 | NUR ---
RECEIVED PT'S REPORT FROM LEAVING NURSE. PT IS AWAKE, ALERT, EYES OPEN SPOTANEOUS BUT NOT TRACKING, FOLLOWING SIMPLE COMMAND. PT BREATHING ON VENT AC MODE: PEEP 5, RR 12, TV 400, FIO2 30%, MODERATE SECRETION CLEANED VIA SUCTION. FLORENTINO IN PLACE, DRAINING VIA GRAVITY, YELLOW COLOR URINE. PT ON AIR MATTRESS, BLE ELEVATED WITH PILLOWS. IV SITE PATENT, INTACT. VERSED INFUSING AT 0.25MG/HR. WILL CONTINUE TO MONITOR.
--- NOTE | 2018-10-21 08:14 | NUR ---
PER DR. VALDIVIA'S ORDER, RT IS GOING TO PUT PT ON CPAP MODE. HOLD VERSED AT THIS TIME.
--- NOTE | 2018-10-21 09:15 | NUR ---
DR NASH AND RESIDENTS ROUNDING. UPDATES PROVIDED BY NURSING.
--- NOTE | 2018-10-21 09:32 | NUR ---
WOUND CARE NURSE AT BEDSIDE, PT HAD BM AT THIS TIME, LOOSE STOOL. SACRAL AREA ULCER OPEN, 2 X 2 CM. CLEAN AREA, Z-GUARD AND OPTIFORM APPLIED. PHOTO IN CHART.
--- NOTE | 2018-10-21 10:00 | NUR ---
WOUND CARE EVALUATION NOTE: REASON FOR EVALUATION: LOW MARISSA SCALE AND PRESSURE ULCER SKIN ASSESSMENT DONE WITH PRIMARY RN AND REPORT OF CHANGE OF CONDITION ON SACRALCOCCYX, PT. WAS PREVIOUS ADMITTED ON SEPTEMBER WITH PRESSURE ULCER TO SACRALCOCCYX AREA.BLE /FEET DARKER PIGMENTATION HER USUAL CONDITION, POC DISCUSSED WITH PRIMARY RN, PHOTO TAKEN TO [facility] BY PRIMARY RN. COMORBIDITIES RELATED TO DELAY HEALING AND FURTHER SKIN BREAKS: INFECTION, RESPIRATORY DISTRESS, LOW ALBUMIN LEVEL AND HOB ELEVATED THE MAJORY OF TIMES DUE TO MEDICAL REASONS. INTEGUMENTARY: -LIPS ARE CLEAN AND MOIST -GT FRANTZ-STOMA SKIN DRY AND INTACT -MOIST ASSOCIATED DERMATITIS TO GROINS AREA, REDNESS WITH SKIN INTACT -SACRALCOCCYX PRESSURE ULCER STAGE 2, WITH 2X2CM SUPERFICIAL DEPTH, WOUND BED IS 100 % GRANULATING MOIST, NO ODOR, WOUND EDGE FLAT AND FRANTZ-WOUND SKIN INTACT, SURROUNDING REDNESS/ PURPLE AREA INDICATED FURTHER DAMAGE -BILATERAL HEELS BLANCHABLE REDNESS RESOLVED RECOMMENDATIONS: -CLEANSE WITH SOAP AND WATER, PAT DRY, APPLY HYDRAGUARD TO PERINEUM, GROINS AREAS BID AND OPEN TO AIR -CLEANSE SACRALCOCCYX PRESSURE ULCER WITH NS, PAT DRY, APPLY Z GUARD AND COVER WITH OPTIFOAM QD AND PRN IF SOILING. -OFFLOAD BILATERAL HEELS BY PLACING PILLOWS UNDER CALVES UNLESS OTHERWISE CONTRAINDICATED -PRESSURE REDISTRIBUTION SURFACE THERAPY -TURN AND REPOSITION Q2H, OFFLOAD HEELS AND SACRALCOCCYX -KEEP SKIN DRY AND CLEAN AT ALL TIMES -CONTINUE TO FOLLOW RD RECOMMENDATIONS PLEASE CONTACT WOUND CARE NURSE FOR ANY QUESTION AND CHANGE OF WOUND CONDITION.
--- NOTE | 2018-10-21 10:07 | NUR ---
PLACED PT BACK ON AC/VC. STARTED SHOWING SIGNS OF FATIGUE, RR 35, VT, 150. RN MADE AWARE. PT LASTED 2 HRS ON CPAP TRIAL. WILL CONT TO MONITOR
--- NOTE | 2018-10-21 10:54 | NUR ---
Follow-up Nutrition Assessment: IC03/A MARIE IBRAHIM FU HR Dx: UTI PMHx: Afib, recurrent UTIs, dementia, HTN, DM, pulmonary HTN, aortic stenosis, CHF, tricuspid insufficiency, anemia Labs: (10/21): BG 121H, BUN 20H, HGB 8.2L Meds: Colace, D 50%, humulin, Lipitor, zofran Diet: Glucerna 1.2 @ 20 ml/hr, goal 50 ml/hr, FWF 250 ml Q6H PO Intake: NPO Weights in kg: (10/17) 57, (10/18) 57, (10/19) 59, (10/20) 58.8, (10/21) 58.5 Skin: ecchymosis BUE, BLE discoloration, healed ulcer on sacral area. Presley: 11 I/Os: (10/20) 2354/725 ([id number]) Edema: trace to BUE GI: Last BM: 10/21 RDN Visit (10/21): Patient was on vent with family member at bedside. TF Glucerna 1.2 was running @ 50 ml/hr, FWF 250 ml Q6H. Per RN Axel, pt is tolerating TF without any residuals. Patient does not have any Diarrhea at this time. Estimated Nutritional Needs Based on current body weight 59 kg Energy: 8428-6845 vs 1190 kcal/d (30-35 kcal/kg vs PSU 2002) Protein: 71-83 g/d (1.2-1.4 g/kg) - UTI, inflammation Fluid: 2888-5987 ml/d (1 ml/kcal) or per doctor Nutrition Diagnosis 1. Increased nutrient needs related to increased metabolic demands as evidenced by patient on ventilator. (ongoing) 2. Malnutrition related to recurrent hospitalizations in the past as evidenced by muscle wasting. (ongoing) Intervention 1. Recommend continuing Glucerna 1.2 @ 50 ml/hr, FWF (per MD). This will provide 1440 kcal and 72g protein. This will meet >75% of estimated calorie and 100% estimated protein needs of the patient. Monitor/Evaluate Goal: Have pt meet at least 75% of estimated needs Monitor: TF intake/ tolerance, Labs, GI function F/U in 2-3 days as high risk 10/23-
--- NOTE | 2018-10-21 13:56 | NUR ---
PATIENT TO BE TRANSFERRED TO [facility] SICU [facility] VALDIVIA ACCEPTING DOCTOR. [facility] ON WILL CALL. REPORT TO BE PHONED TO .
--- NOTE | 2018-10-21 14:59 | NUR ---
[facility] ON UNIT TO TRANSFER PATIENT TO [facility]. PATIENT'S DAUGHTERS AT BEDSIDE AND ARE AWARE OF TRANSFER. REPORT CALLED TO [facility] BY PRIMARY RN MARTINEZ WITH ALL QUESTIONS AND CONCERNS ADDRESSED. REPORT GIVEN TO [facility] RN BY MARTINEZ BOWSER. ALL QUESTIONS AND CONCERNS ADDRESSED.
== END 2018-10-21 15:24 | disposition short-term general hospital (02) | DRG 207 ==
LOC: ED 20:45 → IC 10-17 00:59 → MU 10-17 00:59 → IC 10-17 03:52
PROVIDERS: Emergency Medicine; Internal Medicine; ADMIT Internal Medicine
PROC: 5A1955Z Respiratory Ventilation, Greater than 96 Consecutive Hours (ICD-10-PCS; principal; 2018-10-17)
PROC: 0BH17EZ Insertion of Endotracheal Airway into Trachea, Via Natural or Artificial Opening (ICD-10-PCS; 2018-10-17)
DX: J96.01 Acute respiratory failure with hypoxia (principal); J18.9 Pneumonia, unspecified organism; G93.41 Metabolic encephalopathy; E43 Unspecified severe protein-calorie malnutrition; N39.0 Urinary tract infection, site not specified; I50.32 Chronic diastolic (congestive) heart failure; G91.2 (Idiopathic) normal pressure hydrocephalus; K92.0 Hematemesis; I11.0 Hypertensive heart disease with heart failure; I27.20 Pulmonary hypertension, unspecified; I48.2 Chronic atrial fibrillation; I25.10 Atherosclerotic heart disease of native coronary artery without angina pectoris; I35.0 Nonrheumatic aortic (valve) stenosis; E11.9 Type 2 diabetes mellitus without complications; M81.0 Age-related osteoporosis without current pathological fracture; D64.9 Anemia, unspecified; F03.90 Unspecified dementia, unspecified severity, without behavioral disturbance, psychotic disturbance, mood disturbance, and anxiety; Z68.22 Body mass index [BMI] 22.0-22.9, adult; Z93.1 Gastrostomy status; Z79.01 Long term (current) use of anticoagulants; Z79.84 Long term (current) use of oral hypoglycemic drugs
CPT/HCPCS: 31500; 36600; 82962; 83880; A4628; C9113; G0378; J0330; J0696; J1953; J1956; J2185; J2250; J2405; J2704; J3010; J3370; J3480; J3490; J7030; J7050; J7613; J7620; J7644; P9047; Q0092